=== PATIENT | female | born 1995 | race Caucasian/White ===

== ENCOUNTER 2021-05-24 09:40 | Emergency (ER) | payer OTHER, SELFPAY ==
[2021-05-24 09:50] VITALS: BP 108/80; PULSE 72; RESP 18; TEMP 36.6; O2SAT 99; BMI 25.4
--- NOTE | 2021-05-24 10:11 | ED_ITS ---
HPI - General Adult General Chief complaint: General Medical Stated complaint: ? preg abd pain Time Seen by Provider: 05/24/21 10:03 Source: patient Mode of arrival: ambulatory History of Present Illness HPI narrative: 25-year-old female presenting to the ED complaining of lower abdominal cramping with 4 negative and 4 positive test at home. Reports nausea and vomiting last week, resolved at present. Denies vaginal bleeding, vaginal discharge, fever/chills, dysuria/hematuria, flank pain Onset (ago): day(s) Related Data Allergies Allergy/AdvReac Type Severity Reaction Status Date / Time No Known Allergies Allergy Verified 05/24/21 09:54 Review of Systems Review of Systems: Constitutional: No Fever, No Chills, No Fatigue, No Malaise ENT/Mouth: No Hearing loss, No Ear Pain, No Nasal Congestion, No sore throat, No Swallowing Difficulty Eyes: No Eye Pain, No Swelling, No Redness Cardiovascular: No Chest Pain, No SOB, No Dyspnea on Exertion, No Orthopnea, No Edema, No Palpitations Respiratory: No Cough, No Dyspnea Gastrointestinal: + Nausea (resolved) + Vomiting (resolved), No Diarrhea, No Constipation, + Abdominal pain Genitourinary: No irregular bleeding, No Dysuria, No Urinary Frequency, No Hematuria,No Flank Pain, No Urinary Flow Changes, No Hesitancy Musculoskeletal: No joint pain, No Myalgias, No Joint Swelling Skin: No Skin Lesions, No rash Neuro: No Weakness, No Numbness, No Paresthesias, No Loss of Consciousness, No Dizziness, No Headache Yes all other systems are reviewed and are negative [facility] Past Medical History Attestation statement: The following information was validated with the patient. Medical History (Updated 05/24/21 @ 11:18 by MAG Feldman) No known health problems Social History Social History Advance Directives: No Advance Directives Information Provided: No Patient : No Physical Exam Vital Signs: Vital Signs: Last Vital Signs Temp 98.1 F 05/24/21 10:40 Pulse 67 05/24/21 10:40 Resp 14 05/24/21 10:40 BP 105/70 05/24/21 10:40 Pulse Ox 98 05/24/21 10:40 Body Mass Index 25.4 Const: General: cooperative, healthy appearing and no acute distress Orientation/consciousness: patient oriented x3 Limitations: no limitations HENMT: Head: Yes normal to inspection Ears: hearing grossly normal bilaterally General nose exam: Normal external nose present Face and sinus: Yes normal facial exam Eyes: General: appearance normal, both eyes and all related structures EOM: EOMs intact bilaterally Neck: Neck: Yes normal visual inspection and Yes no meningeal signs Resp: Effort & Inspection: normal respiratory effort and no respiratory distress Auscultation: clear to auscultation bilaterally Cardio: Rate: regular rate Heart sounds: S1 normal heart sound present and S2 normal heart sound present GI: Inspection: Yes normal to inspection Palpation (GI): Soft to palpation, nontender, no guarding and not rigid : General: Yes no CVA tenderness Back/Spine/Pelvis: Back: no CVA tenderness Skin: Rashes: no rashes Wounds: no wounds Neuro: General: patient oriented x3 and no meningeal signs Gait exam (Neuro): Normal gait present Extrem: General: Yes normal to inspection Course Course Course Narrative: -1115--no leukocytosis. H&H at patient's baseline. Labs otherwise unremarkable. UA negative. negative Medical Decision Making [facility] Narrative Medical decision making narrative: 25-year-old female presenting to the ED complaining of lower abdominal cramping with 4 negative and 4 positive test at home. Exam vital signs stable, NAD/nontoxic, abdomen soft/nontender, no CVAT. Rule out vs ectopic vs UTI vs ovarian cyst Plan: Labs, UA, , +/-pelvic ultrasound Lab Data Result diagrams: 05/24/21 10:38 05/24/21 10:38 Labs: Lab Results 05/24/21 05/24/21 05/24/21 Range/Units 10:38 10:38 10:38 WBC 6.9 (4.8-10.8) X10*3/uL RBC 4.17 L (4.20-5.50) X10*6/uL Hgb 11.2 L (12.0-16.0) g/dl Hct 34.3 L (37.0-47.0) % MCV 82.3 (80.0-98.0) fL MCH 26.9 L (27.0-33.0) pg MCHC 32.7 (31.0-35.0) g/dl RDW 12.6 (11.0-16.0) % Plt Count 245 (160-400) X10*3/uL MPV 9.5 (9.4-12.3) fL Immature Gran % (Auto) 0.1 (0.0-0.4) % Neut % (Auto) 55.1 (45-73) % Lymph % (Auto) 36.2 (20-40) % [place] % (Auto) 6.6 (2-11) % Eos % (Auto) 1.7 (0-4) % Baso % (Auto) 0.3 (0-2) % Lymph # (Auto) 2.5 (1.2-4.9) X10*3/uL [place] # (Auto) 0.5 (0.1-1.2) X10*3/uL Eos # (Auto) 0.1 (0.0-0.4) X10*3/uL Baso # (Auto) 0.0 (0.0-0.2) X10*3/uL Abs Immat Gran (auto) 0.01 (0.00-0.03) X10*3/uL Absolute Neuts (auto) 3.8 (2.0-8.3) x10*3/uL Absolute Nucleated RBC 0.000 (0.0-0.012) X10*3/uL Nucleated RBC % (auto) 0.0 (0.0-0.2) /100WBC Sodium 139 (135-145) mmol/L Potassium 4.2 (3.3-5.1) mmol/L Chloride 106 (96-108) mmol/L Carbon Dioxide 29 (22-29) mmol/L Anion Gap 8 L (12-20) BUN 13 (9-16) mg/dL Creatinine 0.78 (0.5-1.4) mg/dL Estim Creat Clear Calc 108.7 Estimated GFR > 60 Random Glucose 95 (60-115) mg/dL Calcium 9.4 (8.4-10.2) mg/dL Magnesium 1.9 (1.6-2.6) mg/dL Total Bilirubin 0.4 (0.0-1.0) mg/dL Direct Bilirubin 0.2 (0.0-0.5) mg/dL AST 20 (5-31) U/L ALT 16 (0-31) U/L Alkaline Phosphatase 86 (39-117) U/L Total Protein 7.3 (6.5-8.0) g/dL Albumin 4.4 (3.5-5.0) g/dL Lipase 17 (8-78) U/L Beta HCG, Quant < 2 mIU/mL Urine Color Urine Appearance Urine pH (5.0-8.0) Ur Specific [place] (1.005-1.025) Urine Protein (NEG-TRACE) MG/DL Urine Glucose (UA) (NEG) MG/DL Urine Ketones (NEG) MG/DL Urine Blood (NEG) Urine Nitrite (NEG) Ur Leukocyte Esterase (NEG) Urine RBC (0) /HPF Urine WBC (0-4) /HPF Ur Squamous Epith Cells /LPF Urine Bacteria /LPF Urine Test NEGATIVE (NEGATIVE) 05/24/21 Range/Units 10:38 WBC (4.8-10.8) X10*3/uL RBC (4.20-5.50) X10*6/uL Hgb (12.0-16.0) g/dl Hct (37.0-47.0) % MCV (80.0-98.0) fL MCH (27.0-33.0) pg MCHC (31.0-35.0) g/dl RDW (11.0-16.0) % Plt Count (160-400) X10*3/uL MPV (9.4-12.3) fL Immature Gran % (Auto) (0.0-0.4) % Neut % (Auto) (45-73) % Lymph % (Auto) (20-40) % [place] % (Auto) (2-11) % Eos % (Auto) (0-4) % Baso % (Auto) (0-2) % Lymph # (Auto) (1.2-4.9) X10*3/uL [place] # (Auto) (0.1-1.2) X10*3/uL Eos # (Auto) (0.0-0.4) X10*3/uL Baso # (Auto) (0.0-0.2) X10*3/uL Abs Immat Gran (auto) (0.00-0.03) X10*3/uL Absolute Neuts (auto) (2.0-8.3) x10*3/uL Absolute Nucleated RBC (0.0-0.012) X10*3/uL Nucleated RBC % (auto) (0.0-0.2) /100WBC Sodium (135-145) mmol/L Potassium (3.3-5.1) mmol/L Chloride (96-108) mmol/L Carbon Dioxide (22-29) mmol/L Anion Gap (12-20) BUN (9-16) mg/dL Creatinine (0.5-1.4) mg/dL Estim Creat Clear Calc Estimated GFR Random Glucose (60-115) mg/dL Calcium (8.4-10.2) mg/dL Magnesium (1.6-2.6) mg/dL Total Bilirubin (0.0-1.0) mg/dL Direct Bilirubin (0.0-0.5) mg/dL AST (5-31) U/L ALT (0-31) U/L Alkaline Phosphatase (39-117) U/L Total Protein (6.5-8.0) g/dL Albumin (3.5-5.0) g/dL Lipase (8-78) U/L Beta HCG, Quant mIU/mL Urine Color YELLOW Urine Appearance CLEAR Urine pH 6.5 (5.0-8.0) Ur Specific [place] 1.025 (1.005-1.025) Urine Protein NEG (NEG-TRACE) MG/DL Urine Glucose (UA) NEG (NEG) MG/DL Urine Ketones NEG (NEG) MG/DL Urine Blood NEG (NEG) Urine Nitrite NEG (NEG) Ur Leukocyte Esterase NEG (NEG) Urine RBC 0 (0) /HPF Urine WBC 0-2 (0-4) /HPF Ur Squamous Epith Cells 2+ /LPF Urine Bacteria NONE /LPF Urine Test (NEGATIVE) Discharge Plan Discharge Clinical Impression: Lower abdominal pain Patient Disposition: Home, Self-Care Instructions: Abdominal Pain (ED) Additional Instructions: Your blood work is unremarkable, your urine and blood work levels were negative Your urine was not infected Please follow-up with her doctor Please stay hydrated at home If her symptoms persist or worsen, your unable to eat or drink, unbearable pain, developed fever please return to the ED Referrals: Physician,None [Primary Care Provider] - 2 days
[2021-05-24 10:40] VITALS: BP 105/70; PULSE 67; RESP 14; TEMP 36.7; O2SAT 98
[2021-05-24 10:45] LABS: MANUAL DIFF FLAG NO
[2021-05-24 10:46] LABS: Appearance Urine CLEAR; Basophils Percent Auto 0.3 % (0-2); Color Urine YELLOW; Eosinophils Absolute Auto 0.1 X10*3/uL (0.0-0.4); Eosinophils Percent Auto 1.7 % (0-4); Glucose Urine UA NEG (NEG); Hematocrit 34.3 % (37.0-47.0); Hemoglobin 11.2 g/dl (12.0-16.0); Imm Gran Abs Auto 0.01 X10*3/uL (0.00-0.03); Imm Gran Pct Auto 0.1 % (0.0-0.4); Leukocyte Esterase Urine NEG (NEG); Lymphocytes Absolute Auto 2.5 X10*3/uL (1.2-4.9); Lymphocytes Percent Auto 36.2 % (20-40); Mean Corpuscular HGB Conc 32.7 g/dl (31.0-35.0); Mean Corpuscular Hemoglobin 26.9 pg (27.0-33.0); Mean Corpuscular Volume 82.3 fL (80.0-98.0); Mean Platelet Volume 9.5 fL (9.4-12.3); Monocytes Absolute Auto 0.5 X10*3/uL (0.1-1.2); Monocytes Percent Auto 6.6 % (2-11); Neutrophils Absolute Auto 3.8 x10*3/uL (2.0-8.3); Neutrophils Percent Auto 55.1 % (45-73); Nitrite Urine NEG (NEG); PH 6.5 (5.0-8.0); Platelet Count 245 X10*3/uL (160-400); Red Blood Count 4.17 X10*6/uL (4.20-5.50); Red Cell Distribution Width 12.6 % (11.0-16.0); Specific Gravity - Urine 1.025 (1.005-1.025); Urine Blood NEG (NEG); Urine Ketones NEG (NEG); Urine Protein NEG (NEG-TRACE); White Blood Count 6.9 X10*3/uL (4.8-10.8)
[2021-05-24 10:48] LABS: UPreg QC Valid YES; Urine Pregnancy NEGATIVE (NEGATIVE)
[2021-05-24 11:06] LABS: Alanine Aminotransferase 16 U/L (0-31); Albumin Level 4.4 g/dL (3.5-5.0); Alkaline Phosphatase 86 U/L (39-117); Anion Gap 8 (12-20); Aspartate Amino Transferase 20 U/L (5-31); Bilirubin Direct 0.2 mg/dL (0.0-0.5); Bilirubin Total 0.4 mg/dL (0.0-1.0); Blood Urea Nitrogen 13 mg/dL (9-16); Calcium 9.4 mg/dL (8.4-10.2); Carbon Dioxide 29 mmol/L (22-29); Chloride 106 mmol/L (96-108); Creatinine Clr Calc Pharmacy 108.7; Estimated Glomerular Filt Rate > 60; Glucose Random 95 mg/dL (60-115); Lipase 17 U/L (8-78); Magnesium 1.9 mg/dL (1.6-2.6); Potassium 4.2 mmol/L (3.3-5.1); Sodium 139 mmol/L (135-145); Total Protein 7.3 g/dL (6.5-8.0)
[2021-05-24 11:07] LABS: RBC Urine 0 /HPF (0); Squamous Epithelial Cell Urine 2+ /LPF; WBC Urine 0-2 /HPF (0-4)
[2021-05-24 11:09] LABS: HCG Quantitative < 2 mIU/mL
== END 2021-05-24 11:23 | disposition home or self-care (01) ==
PROVIDERS: Physician Assistant; Emergency Provider Emergency Medicine
DX: R10.30 Lower abdominal pain, unspecified (principal); R11.2 Nausea with vomiting, unspecified
CPT/HCPCS: 36415; 80048; 80076; 81001; 81025; 83690; 83735; 84702; 85025; 99283

== ENCOUNTER 2021-07-21 17:57 | Emergency (ER) | payer OTHER, SELFPAY ==
--- NOTE | ~2021-07-21 | US_ITS ---
EXAMINATION: US OBSTETRICAL ULTRASOUND CLINICAL INFORMATION: Vaginal bleeding. HCG today 2617 corresponding to 4-5 weeks COMPARISON: None. LMP: 06/11/2021. Gestational age by maternal dates is 5 weeks and 6 days. Estimated date of delivery by maternal dates is 03/18/2022. TECHNIQUE: Routine transabdominal and transvaginal imaging of pelvis is performed. FINDINGS: There is a single intrauterine gestational sac with yolk sac visualized. pole is not visualized. The gestational sac measurements to 5 weeks and 2 days. There is a tiny hypoechoic area adjacent to gestational sac measuring 0.7 x 0.3 x 0.4 cm suggestive of subchorionic bleed. HR: Not visualized MATERNAL ADNEXA: The right maternal ovary measures 2.9 x 2.0 x 2.1 cm. There is a corpus luteal cyst measuring 1.5 x 1.0 x 1.2 cm. The left maternal ovary measures 3.1 x 1.8 x 1.8 cm. There is a small amount of fluid in the cul-de-sac. US/US OB pelvic and transvaginal IMPRESSION: 1. Single intrauterine gestation and yolk sac with no pole seen. Based on gestational sac measurements of 5 weeks and 2 days visualization of pole is likely too early. Recommend follow-up ultrasound in 2-3 weeks. 2Corpus luteal cyst right ovary. 3.Small subchorionic bleed.
[2021-07-21 19:07] VITALS: BP 154/70; PULSE 74; RESP 18; TEMP 37.2; O2SAT 100; BMI 27.4
[2021-07-21 21:33] LABS: MANUAL DIFF FLAG NO
[2021-07-21 21:35] LABS: Basophils Percent Auto 0.3 % (0-2); Eosinophils Absolute Auto 0.1 X10*3/uL (0.0-0.4); Eosinophils Percent Auto 0.6 % (0-4); Hematocrit 39.6 % (37.0-47.0); Hemoglobin 12.8 g/dl (12.0-16.0); Imm Gran Abs Auto 0.02 X10*3/uL (0.00-0.03); Imm Gran Pct Auto 0.2 % (0.0-0.4); Lymphocytes Absolute Auto 2.7 X10*3/uL (1.2-4.9); Lymphocytes Percent Auto 27.3 % (20-40); Mean Corpuscular HGB Conc 32.3 g/dl (31.0-35.0); Mean Corpuscular Hemoglobin 26.6 pg (27.0-33.0); Mean Corpuscular Volume 82.2 fL (80.0-98.0); Mean Platelet Volume 9.5 fL (9.4-12.3); Monocytes Absolute Auto 0.4 X10*3/uL (0.1-1.2); Monocytes Percent Auto 4.4 % (2-11); Neutrophils Absolute Auto 6.6 x10*3/uL (2.0-8.3); Neutrophils Percent Auto 67.2 % (45-73); Platelet Count 306 X10*3/uL (160-400); Red Blood Count 4.82 X10*6/uL (4.20-5.50); Red Cell Distribution Width 12.7 % (11.0-16.0); White Blood Count 9.8 X10*3/uL (4.8-10.8)
[2021-07-21 22:02] LABS: Alanine Aminotransferase 61 U/L (0-31); Albumin Level 4.9 g/dL (3.5-5.0); Alkaline Phosphatase 103 U/L (39-117); Anion Gap 15 (12-20); Aspartate Amino Transferase 32 U/L (5-31); Bilirubin Total 0.4 mg/dL (0.0-1.0); Blood Urea Nitrogen 10 mg/dL (9-16); Calcium 10.2 mg/dL (8.4-10.2); Carbon Dioxide 25 mmol/L (22-29); Chloride 103 mmol/L (96-108); Creatinine Clr Calc Pharmacy 114.5; Estimated Glomerular Filt Rate > 60; Glucose Random 93 mg/dL (60-115); Potassium 3.8 mmol/L (3.3-5.1); Sodium 139 mmol/L (135-145); Total Protein 8.7 g/dL (6.5-8.0)
[2021-07-22 05:57] LABS: Appearance Urine CLOUDY; Color Urine DK YELLOW; Glucose Urine UA NEG (NEG); Leukocyte Esterase Urine 1+ (NEG); Nitrite Urine NEG (NEG); Specific Gravity - Urine >= 1.030 (1.005-1.025); UACC Culture Trigger YES; Urine Blood 3+ (NEG); Urine Ketones NEG (NEG); Urine Protein TRACE MG/DL (NEG-TRACE)
[2021-07-22 06:00] LABS: UPreg QC Valid YES; Urine Pregnancy POSITIVE (NEGATIVE)
[2021-07-22 06:09] LABS: Bacteria Urine 1+ /LPF; Mucus Urine 1+ /LPF; RBC Urine 50-75 /HPF (0); Squamous Epithelial Cell Urine 1+ /LPF
[2021-07-22 06:51] LABS: HCG Quantitative 2617 mIU/mL
--- NOTE | 2021-07-22 07:51 | ED_ITS ---
HPI - Female Genitourinary General Chief complaint: Urogenital-Female Stated complaint: 5 wks preg/Vaginal bleeding Time Seen by Provider: 07/21/21 23:38 Source: patient Mode of arrival: ambulatory Limitations: no limitations History of Present Illness HPI Narrative: 5 weeks based off LMP - at this time c/o bleeding since intercourse yesterday some cramping no tohter issues noted MD elicited complaint: vaginal bleeding Onset (ago): day(s) (1) Location of symptoms: suprapubic Severity: mild Female Urogenital Radiation: Non-Radiating Quality of pain: cramping and dull Consistency: intermittent Vaginal bleeding: scant Exacerbating factors: none Relieving factors: none Associated symptoms: abdominal pain Treatment prior to arrival: none Sexual activity: Yes Patient : Yes Related Data Allergies Allergy/AdvReac Type Severity Reaction Status Date / Time No Known Allergies Allergy Verified 07/21/21 19:07 Review of Systems Review of Systems: Constitutional : No Fever, No Chills ENT/Mouth : No sore throat, No Rhinorrhea Eyes: No Eye Pain, No Redness Cardiovascular : No Chest Pain, No SOB Respiratory : No Cough, No Sputum, No Wheezing Gastrointestinal : no Nausea, No Vomiting, No Diarrhea, positive abdominal pain, Genitourinary : positive irregular bleeding, No Dysuria, No Urinary Frequency, positive pelvic pain Musculoskeletal : No Myalgias Skin : No rash Neuro : No Weakness, No Headache Psych : No Anxiety/Panic, No Depression Heme/Lymph: No bruising, No Lymphadenopathy Endocrine : No Polyuria, No Polydipsia All other systems reviewed and are negative [facility] Past Medical History Medical History No known health problems Social History Social History (Updated 07/22/21 @ 08:16 by Karon Kyle DO) Patient Tobacco Use Status: Never used Tobacco Advance Directives: No Advance Directives Information Provided: Yes Patient : Yes Physical Exam Vital Signs: Vital Signs: Last Vital Signs Temp 99 F 07/21/21 19:07 Pulse 74 07/21/21 19:07 Resp 18 07/21/21 19:07 BP 154/70 H 07/21/21 19:07 Pulse Ox 100 07/21/21 19:07 BMI result Body Mass Index 27.4 Appearance: Alert. Oriented X3. No acute distress. Eyes: Pupils equal, round and reactive to light. ENT: Pharynx normal. Neck: Normal inspection. Neck supple. CVS: Normal heart rate and rhythm. Pulses normal. Respiratory: No respiratory distress. Breath sounds normal. Abdomen: Soft and nontender. : scant blood on fingertip noted, os closed Skin: Skin warm and dry. Normal skin color. Normal skin turgor. Extremities: No lower extremity edema. No calf ttp Neuro: Oriented X 3. No motor deficit. No sensory deficit. Course Course Course Narrative: WBCs in UA likely contaminated from blood O POS - does not need rhogam MDM - Female Genitourinary MDM Narrative Medical decision making narrative: 26 yo female here with vaginal bleeding after intercourse 5 weeks - os closed on exam at this time will need quant, UA, Rh status - US to evaluate dispo per results and findings Lab Data Result diagrams: 07/21/21 21:30 07/21/21 21:30 Labs: Lab Results 07/21/21 07/21/21 07/22/21 Range/Units 21:30 21:30 05:44 WBC 9.8 (4.8-10.8) X10*3/uL RBC 4.82 (4.20-5.50) X10*6/uL Hgb 12.8 (12.0-16.0) g/dl Hct 39.6 (37.0-47.0) % MCV 82.2 (80.0-98.0) fL MCH 26.6 L (27.0-33.0) pg MCHC 32.3 (31.0-35.0) g/dl RDW 12.7 (11.0-16.0) % Plt Count 306 (160-400) X10*3/uL MPV 9.5 (9.4-12.3) fL Immature Gran % (Auto) 0.2 (0.0-0.4) % Neut % (Auto) 67.2 (45-73) % Lymph % (Auto) 27.3 (20-40) % [place] % (Auto) 4.4 (2-11) % Eos % (Auto) 0.6 (0-4) % Baso % (Auto) 0.3 (0-2) % Lymph # (Auto) 2.7 (1.2-4.9) X10*3/uL [place] # (Auto) 0.4 (0.1-1.2) X10*3/uL Eos # (Auto) 0.1 (0.0-0.4) X10*3/uL Baso # (Auto) 0.0 (0.0-0.2) X10*3/uL Abs Immat Gran (auto) 0.02 (0.00-0.03) X10*3/uL Absolute Neuts (auto) 6.6 (2.0-8.3) x10*3/uL Absolute Nucleated RBC 0.000 (0.0-0.012) X10*3/uL Nucleated RBC % (auto) 0.0 (0.0-0.2) /100WBC Sodium 139 (135-145) mmol/L Potassium 3.8 (3.3-5.1) mmol/L Chloride 103 (96-108) mmol/L Carbon Dioxide 25 (22-29) mmol/L Anion Gap 15 (12-20) BUN 10 (9-16) mg/dL Creatinine 0.76 (0.5-1.4) mg/dL Estim Creat Clear Calc 114.5 Estimated GFR > 60 Random Glucose 93 (60-115) mg/dL Calcium 10.2 D (8.4-10.2) mg/dL Total Bilirubin 0.4 (0.0-1.0) mg/dL AST 32 H D (5-31) U/L ALT 61 H (0-31) U/L Alkaline Phosphatase 103 (39-117) U/L Total Protein 8.7 H (6.5-8.0) g/dL Albumin 4.9 (3.5-5.0) g/dL Beta HCG, Quant 2617 mIU/mL Urine Color DK YELLOW Urine Appearance CLOUDY Urine pH 6.0 (5.0-8.0) Ur Specific [place] >= 1.030 H (1.005-1.025) Urine Protein TRACE (NEG-TRACE) MG/DL Urine Glucose (UA) NEG (NEG) MG/DL Urine Ketones NEG (NEG) MG/DL Urine Blood 3+ H (NEG) Urine Nitrite NEG (NEG) Ur Leukocyte Esterase 1+ H (NEG) Urine RBC 50-75 H (0) /HPF Urine WBC 5-9 H (0-4) /HPF Ur Squamous Epith Cells 1+ /LPF Urine Bacteria 1+ /LPF Urine Mucus 1+ /LPF Urine Test (NEGATIVE) Blood Type 07/22/21 07/22/21 Range/Units 05:44 08:41 WBC (4.8-10.8) X10*3/uL RBC (4.20-5.50) X10*6/uL Hgb (12.0-16.0) g/dl Hct (37.0-47.0) % MCV (80.0-98.0) fL MCH (27.0-33.0) pg MCHC (31.0-35.0) g/dl RDW (11.0-16.0) % Plt Count (160-400) X10*3/uL MPV (9.4-12.3) fL Immature Gran % (Auto) (0.0-0.4) % Neut % (Auto) (45-73) % Lymph % (Auto) (20-40) % [place] % (Auto) (2-11) % Eos % (Auto) (0-4) % Baso % (Auto) (0-2) % Lymph # (Auto) (1.2-4.9) X10*3/uL [place] # (Auto) (0.1-1.2) X10*3/uL Eos # (Auto) (0.0-0.4) X10*3/uL Baso # (Auto) (0.0-0.2) X10*3/uL Abs Immat Gran (auto) (0.00-0.03) X10*3/uL Absolute Neuts (auto) (2.0-8.3) x10*3/uL Absolute Nucleated RBC (0.0-0.012) X10*3/uL Nucleated RBC % (auto) (0.0-0.2) /100WBC Sodium (135-145) mmol/L Potassium (3.3-5.1) mmol/L Chloride (96-108) mmol/L Carbon Dioxide (22-29) mmol/L Anion Gap (12-20) BUN (9-16) mg/dL Creatinine (0.5-1.4) mg/dL Estim Creat Clear Calc Estimated GFR Random Glucose (60-115) mg/dL Calcium (8.4-10.2) mg/dL Total Bilirubin (0.0-1.0) mg/dL AST (5-31) U/L ALT (0-31) U/L Alkaline Phosphatase (39-117) U/L Total Protein (6.5-8.0) g/dL Albumin (3.5-5.0) g/dL Beta HCG, Quant mIU/mL Urine Color Urine Appearance Urine pH (5.0-8.0) Ur Specific [place] (1.005-1.025) Urine Protein (NEG-TRACE) MG/DL Urine Glucose (UA) (NEG) MG/DL Urine Ketones (NEG) MG/DL Urine Blood (NEG) Urine Nitrite (NEG) Ur Leukocyte Esterase (NEG) Urine RBC (0) /HPF Urine WBC (0-4) /HPF Ur Squamous Epith Cells /LPF Urine Bacteria /LPF Urine Mucus /LPF Urine Test POSITIVE H (NEGATIVE) Blood Type O Positive Discharge Plan Discharge Clinical Impression: , threatened Subchorionic bleed Qualifiers: Fetus number: single or unspecified fetus Trimester: first trimester Qualified Code(s): O41.8X10 - Other specified disorders of amniotic fluid and membranes, first trimester, not applicable or unspecified Patient Disposition: Home, Self-Care Instructions: Threatened Miscarriage (ED), Subchorionic Hemorrhage (ED) Additional Instructions: return to ED for any worsening symptoms or concerns US FINDINGS 1. Single intrauterine gestation and yolk sac with no pole seen. Based on gestational sac measurements of 5 weeks and 2 days visualization of pole is likely too early. Recommend follow-up ultrasound in 2-3 weeks. ? 2Corpus luteal cyst right ovary. ? 3.Small subchorionic bleed. HCG 2617 BLOOD TYPE O POS YOUR URINE IS NOT INFECTED AT THIS TIME IF THE CULTURE GROWS ANYTHING WE WILL CALL YOU NO SEX FOR 2 WEEKS CALL YOUR OB AND HAVE A REPEAT BLOOD TEST FOR HORMONES IN 2 DAYS REPEAT ULTRASOUND IN 2 WEEKS RETURN FOR WORSENING BLEEDING OR LARGE CLOTS Stand Alone Forms: Work/School Release
[2021-07-22 10:15] VITALS: BP 117/75; PULSE 72; RESP 14; TEMP 36.4; O2SAT 97
== END 2021-07-22 10:28 | disposition home or self-care (01) ==
PROVIDERS: Student in an Organized Health Care Education/Training Program; Emergency Provider Emergency Medicine; PCP Internal Medicine
DX: O20.0 Threatened abortion (principal); O41.8X10 Other specified disorders of amniotic fluid and membranes, first trimester, not applicable or unspecified; Z3A.01 Less than 8 weeks gestation of pregnancy
CPT/HCPCS: 36415; 76801; 76817; 80053; 81001; 81003; 81025; 84702; 85025; 86900; 86901; 87086; 87147; 99284

== ENCOUNTER 2021-07-24 15:22 | Emergency (ER) | payer OTHER, SELFPAY ==
--- NOTE | ~2021-07-24 | US_ITS ---
EXAMINATION: US OBSTETRICAL ULTRASOUND CLINICAL INFORMATION: Vaginal bleeding COMPARISON: OB ultrasound 07/22/2021. LMP: 06/11/2021. Gestational age by maternal dates is 6 weeks and 1 day. Estimated date of delivery by maternal dates is 03/18/2022. TECHNIQUE: Obstetrical ultrasound was obtained using transabdominal and endovaginal imaging. FINDINGS: Uterus is retroverted in position. The endometrium measures 1 cm in thickness with no significant internal vascularity. The previously seen gestational sac is no longer identified. MATERNAL ADNEXA: The right maternal ovary measures 3.0 x 2.0 x 2.0 cm. Ovary is unremarkable in appearance. No adnexal mass. The left maternal ovary measures 3.0 x 2.0 x 2.5 cm. Ovary is unremarkable in appearance. No adnexal mass. No maternal pelvic ascites. US/US OB pelvic and transvaginal IMPRESSION: The previously seen intrauterine gestational sac is no longer identified suggestive of interval miscarriage. Endometrium is borderline thickening measuring 1 cm, for which retained products of conception cannot be excluded. No free fluid or adnexal mass.
[2021-07-24 16:00] VITALS: BP 105/62; RESP 16; TEMP 36.2; O2SAT 98; BMI 27.4
--- NOTE | 2021-07-24 21:59 | ED.PREGNANCY ---
HPI - General Chief complaint: Vaginal Bleeding Stated complaint: vag bleeding - 6wks preg Time Seen by Provider: 07/24/21 21:14 Source: patient Mode of arrival: ambulatory Limitations: no limitations History of Present Illness HPI Narrative: 26 yold female presents to the ED vaginal bleeding. Patient is and was seen here 2 days ago for heavy vaginal bleeding clots and had US which showed gesational sac with yolk sacem but no pole. Patient states no longer has bleeding clots and denies any abdominal pain. patient came back to the ED for continous vaginal bleeding. and mild fatigue. Complaint: vaginal bleeding Related Data Allergies Allergy/AdvReac Type Severity Reaction Status Date / Time No Known Allergies Allergy Verified 07/21/21 19:07 Review of Systems Review of Systems: vaginal lbeeding. Yes all other systems are reviewed and are negative FOR[facility]LY [facility] Past Medical History Medical History No known health problems Social History Social History (Updated 07/22/21 @ 08:16 by Karon Kyle DO) Patient Tobacco Use Status: Never used Tobacco Physical Exam Vital Signs: Vital Signs: Last Vital Signs Temp 97.1 F 07/24/21 16:00 Pulse 78 07/24/21 22:03 Resp 18 07/24/21 22:03 BP 115/79 07/24/21 22:03 Pulse Ox 95 07/24/21 22:03 BMI result Body Mass Index 27.4 Const: General: cooperative, healthy appearing, comfortable, no acute distress, well developed, alert, awake and Physically active Orientation/consciousness: patient oriented x3 HENMT: Head: Yes normal to inspection, Yes No palpable skull fracture present, Yes normocephalic, Yes atraumatic and No abrasion Eyes: General: appearance normal, both eyes and all related structures Neck: Neck: Yes normal visual inspection, Yes full ROM, Yes no lymphadenopathy, Yes no meningeal signs, Yes trachea midline, Yes supple, No anterior neck swelling and No tender Chest: Chest palpation & inspection: normal inspection of the chest and normal palpation of entire chest wall Resp: Effort & Inspection: normal respiratory effort and able to speak in complete sentences Cardio: Jugular venous distension: no JVD Heart sounds: S1 normal heart sound present and S2 normal heart sound present GI: Inspection: Yes normal to inspection and No abdominal wall ecchymosis Palpation (GI): Soft to palpation, not firm, nontender, no guarding and not rigid : General: No CVA tenderness and Yes no CVA tenderness Speculum Exam - Vagina: vaginal bleeding (Negative for hemorrhaging.) and No tissue present in vagina Speculum Exam - Cervix: normal appearance of the cervix and Cervical os closed (Negative for tissue.) OB/external & speculum: vaginal bleeding (Negative for hemorrhaging.); No no tissue noted in vagina Back/Spine/Pelvis: Back: no CVA tenderness, No CVA tenderness and No back tenderness Skin: General skin exam: no rashes or lesions noted, elasticity normal and turgor normal Neuro: General: patient oriented x3, gait normal, no meningeal signs and CN's II-XI intact bilaterally Cranial nerves: Yes CN's II-XII intact bilaterally Extrem: General: Yes normal to inspection and Yes full ROM Psych: Appearance: grossly normal, well kempt and not disheveled Course Course Course Narrative: Patient will have repeat labs and US. Vital signs stable Reevaluation(s) Reevaluation #1: Labs shows decrease in AcG with ultrasound showing some reading of complete with possible retained products. Patient is hemodynamically stable. Waiting to hear from Dr. Alvarado Curtis Time: 00:05 Reevaluation #2: Case was discussed with Dr. Childers. History, physical exam, and diagnostics [facility] And he states patient most likely had complete and could be follow-up as outpatient at OBGYN clinic. Recommends education spontaneous and for patient to return to the ED immediately if she has worsening bleeding. Patient informed if bleeding worsen to return to the ED immediately. He recommends education and discharged as incomplete . Time: 00:16 MDM - OB/Uterine Contractions MDM Narrative Medical decision making narrative: Complete Lab Data Result diagrams: 07/24/21 22:11 07/24/21 22:11 Labs: Lab Results 07/24/21 07/24/21 07/24/21 Range/Units 22:11 22:11 22:11 WBC 5.2 (4.8-10.8) X10*3/uL RBC 4.41 (4.20-5.50) X10*6/uL Hgb 11.6 L 11.7 L (12.0-16.0) g/dl Hct 35.7 L 36.5 L (37.0-47.0) % MCV 82.8 (80.0-98.0) fL MCH 26.5 L (27.0-33.0) pg MCHC 32.1 (31.0-35.0) g/dl RDW 12.8 (11.0-16.0) % Plt Count 270 (160-400) X10*3/uL MPV 9.6 (9.4-12.3) fL Immature Gran % (Auto) 0.2 (0.0-0.4) % Neut % (Auto) 48.9 (45-73) % Lymph % (Auto) 39.8 (20-40) % Mower % (Auto) 9.3 (2-11) % Eos % (Auto) 1.6 (0-4) % Baso % (Auto) 0.2 (0-2) % Lymph # (Auto) 2.1 (1.2-4.9) X10*3/uL Mower # (Auto) 0.5 (0.1-1.2) X10*3/uL Eos # (Auto) 0.1 (0.0-0.4) X10*3/uL Baso # (Auto) 0.0 (0.0-0.2) X10*3/uL Abs Immat Gran (auto) 0.01 (0.00-0.03) X10*3/uL Absolute Neuts (auto) 2.5 (2.0-8.3) x10*3/uL Absolute Nucleated RBC 0.000 (0.0-0.012) X10*3/uL Nucleated RBC % (auto) 0.0 (0.0-0.2) /100WBC PT 12.7 (9.9-13.0) SEC INR 1.1 (0.9-1.1) APTT 37.7 (24.1-38.0) SEC Sodium (135-145) mmol/L Potassium (3.3-5.1) mmol/L Chloride (96-108) mmol/L Carbon Dioxide (22-29) mmol/L Anion Gap (12-20) BUN (9-16) mg/dL Creatinine (0.5-1.4) mg/dL Estim Creat Clear Calc Estimated GFR Random Glucose (60-115) mg/dL Calcium (8.4-10.2) mg/dL Total Bilirubin (0.0-1.0) mg/dL Direct Bilirubin (0.0-0.5) mg/dL AST (5-31) U/L ALT (0-31) U/L Alkaline Phosphatase (39-117) U/L Total Protein (6.5-8.0) g/dL Albumin (3.5-5.0) g/dL Beta HCG, Quant mIU/mL Urine Color Urine Appearance Urine pH (5.0-8.0) Ur Specific [place] (1.005-1.025) Urine Protein (NEG-TRACE) MG/DL Urine Glucose (UA) (NEG) MG/DL Urine Ketones (NEG) MG/DL Urine Blood (NEG) Urine Nitrite (NEG) Ur Leukocyte Esterase (NEG) Urine RBC (0) /HPF Urine WBC (0-4) /HPF Ur Squamous Epith Cells /LPF Urine Bacteria /LPF Urine Mucus /LPF Urine Test (NEGATIVE) 07/24/21 07/24/21 07/24/21 Range/Units 22:11 23:05 23:05 WBC (4.8-10.8) X10*3/uL RBC (4.20-5.50) X10*6/uL Hgb (12.0-16.0) g/dl Hct (37.0-47.0) % MCV (80.0-98.0) fL MCH (27.0-33.0) pg MCHC (31.0-35.0) g/dl RDW (11.0-16.0) % Plt Count (160-400) X10*3/uL MPV (9.4-12.3) fL Immature Gran % (Auto) (0.0-0.4) % Neut % (Auto) (45-73) % Lymph % (Auto) (20-40) % Mower % (Auto) (2-11) % Eos % (Auto) (0-4) % Baso % (Auto) (0-2) % Lymph # (Auto) (1.2-4.9) X10*3/uL Mower # (Auto) (0.1-1.2) X10*3/uL Eos # (Auto) (0.0-0.4) X10*3/uL Baso # (Auto) (0.0-0.2) X10*3/uL Abs Immat Gran (auto) (0.00-0.03) X10*3/uL Absolute Neuts (auto) (2.0-8.3) x10*3/uL Absolute Nucleated RBC (0.0-0.012) X10*3/uL Nucleated RBC % (auto) (0.0-0.2) /100WBC PT (9.9-13.0) SEC INR (0.9-1.1) APTT (24.1-38.0) SEC Sodium 138 (135-145) mmol/L Potassium 3.9 (3.3-5.1) mmol/L Chloride 102 (96-108) mmol/L Carbon Dioxide 30 H (22-29) mmol/L Anion Gap 10 L (12-20) BUN 9 (9-16) mg/dL Creatinine 0.79 (0.5-1.4) mg/dL Estim Creat Clear Calc 110.2 Estimated GFR > 60 Random Glucose 100 (60-115) mg/dL Calcium 10.0 (8.4-10.2) mg/dL Total Bilirubin < 0.2 (0.0-1.0) mg/dL Direct Bilirubin < 0.2 (0.0-0.5) mg/dL AST 24 (5-31) U/L ALT 47 H (0-31) U/L Alkaline Phosphatase 101 (39-117) U/L Total Protein 8.1 H (6.5-8.0) g/dL Albumin 4.5 (3.5-5.0) g/dL Beta HCG, Quant 283 mIU/mL Urine Color BROWN Urine Appearance CLOUDY Urine pH 6.0 (5.0-8.0) Ur Specific [place] 1.025 (1.005-1.025) Urine Protein 1+ H (NEG-TRACE) MG/DL Urine Glucose (UA) NEG (NEG) MG/DL Urine Ketones NEG (NEG) MG/DL Urine Blood 3+ H (NEG) Urine Nitrite NEG (NEG) Ur Leukocyte Esterase NEG (NEG) Urine RBC TNTC H (0) /HPF Urine WBC 0-2 (0-4) /HPF Ur Squamous Epith Cells 4+ /LPF Urine Bacteria 1+ /LPF Urine Mucus 4+ /LPF Urine Test POSITIVE H (NEGATIVE) Discharge Plan Discharge Clinical Impression: Incomplete Patient Disposition: Home, Self-Care Instructions: Miscarriage (ED) Additional Instructions: Your ultrasound and blood work indicate miscarriage. Dr. Childers, OBGYN on-call, recommends follow-up at outpatient [facility]. Return to the ED immediately for abdominal pain, worsening vaginal bleeding, weakness, dizziness, chest pain, shortness of breath, or any other concerning symptoms. Referrals: Matt Childers MD [Physician] - 2 days (Complete ) Stand Alone Forms: Work/School Release Interventions: ED Discharge Assessment Last Done: 07/25/21 00:36 Discharge Date/Time: 07/25/21 00:37 Print Language: Mozambican
[2021-07-24 22:03] VITALS: BP 115/79; PULSE 78; RESP 18; O2SAT 95
[2021-07-24] MEDS: 0.9 % Sodium Chloride 1,000 ML 999 ML IV (22:11)
[2021-07-24 22:17] LABS: MANUAL DIFF FLAG NO
[2021-07-24 22:19] LABS: Basophils Percent Auto 0.2 % (0-2); Eosinophils Absolute Auto 0.1 X10*3/uL (0.0-0.4); Eosinophils Percent Auto 1.6 % (0-4); Hematocrit 35.7 % (37.0-47.0); Hematocrit 36.5 % (37.0-47.0); Hemoglobin 11.6 g/dl (12.0-16.0); Hemoglobin 11.7 g/dl (12.0-16.0); Imm Gran Abs Auto 0.01 X10*3/uL (0.00-0.03); Imm Gran Pct Auto 0.2 % (0.0-0.4); Lymphocytes Absolute Auto 2.1 X10*3/uL (1.2-4.9); Lymphocytes Percent Auto 39.8 % (20-40); Mean Corpuscular HGB Conc 32.1 g/dl (31.0-35.0); Mean Corpuscular Hemoglobin 26.5 pg (27.0-33.0); Mean Corpuscular Volume 82.8 fL (80.0-98.0); Mean Platelet Volume 9.6 fL (9.4-12.3); Monocytes Absolute Auto 0.5 X10*3/uL (0.1-1.2); Monocytes Percent Auto 9.3 % (2-11); Neutrophils Absolute Auto 2.5 x10*3/uL (2.0-8.3); Neutrophils Percent Auto 48.9 % (45-73); Platelet Count 270 X10*3/uL (160-400); Red Blood Count 4.41 X10*6/uL (4.20-5.50); Red Cell Distribution Width 12.8 % (11.0-16.0); White Blood Count 5.2 X10*3/uL (4.8-10.8)
[2021-07-24 22:38] LABS: Alanine Aminotransferase 47 U/L (0-31); Albumin Level 4.5 g/dL (3.5-5.0); Alkaline Phosphatase 101 U/L (39-117); Anion Gap 10 (12-20); Aspartate Amino Transferase 24 U/L (5-31); Bilirubin Direct < 0.2 mg/dL (0.0-0.5); Bilirubin Total < 0.2 mg/dL (0.0-1.0); Blood Urea Nitrogen 9 mg/dL (9-16); Carbon Dioxide 30 mmol/L (22-29); Chloride 102 mmol/L (96-108); Creatinine Clr Calc Pharmacy 110.2; Estimated Glomerular Filt Rate > 60; Glucose Random 100 mg/dL (60-115); Potassium 3.9 mmol/L (3.3-5.1); Sodium 138 mmol/L (135-145); Total Protein 8.1 g/dL (6.5-8.0)
[2021-07-24 22:41] LABS: INTERNATIONAL NORM RATIO 1.1 (0.9-1.1); Prothrombin Time 12.7 SEC (9.9-13.0)
[2021-07-24 22:43] LABS: HCG Quantitative 283 mIU/mL
[2021-07-24 22:44] LABS: Partial Thromboplastin Time 37.7 SEC (24.1-38.0)
[2021-07-24 23:11] LABS: UPreg QC Valid YES; Urine Pregnancy POSITIVE (NEGATIVE)
[2021-07-24 23:12] LABS: Appearance Urine CLOUDY; Color Urine BROWN; Glucose Urine UA NEG (NEG); Leukocyte Esterase Urine NEG (NEG); Nitrite Urine NEG (NEG); Specific Gravity - Urine 1.025 (1.005-1.025); UACC Culture Trigger NO; Urine Blood 3+ (NEG); Urine Ketones NEG (NEG); Urine Protein 1+ MG/DL (NEG-TRACE)
[2021-07-24 23:20] LABS: Bacteria Urine 1+ /LPF; Mucus Urine 4+ /LPF; RBC Urine TNTC /HPF (0); Squamous Epithelial Cell Urine 4+ /LPF; WBC Urine 0-2 /HPF (0-4)
--- NOTE | 2021-07-25 00:12 | P.CONOB_ITS ---
EDUCATIONAL INSTITUTION CURATOR - CN: HPI Data of Consult Consult date: 07/25/21 Primary Care Provider: None Physician Consult Narrative Narrative: I was consulted on Kiana Campos who is a 26 year old female presented to the ED with mild vaginal bleeding. Patient is and was seen here 2 days ago for heavy vaginal bleeding clots while and had US which showed gesational sac with yolk sace but no pole. Patient states that she no longer has bleeding clots, her bleeding slowed down and denies any abdominal pain. patient came back to the ED for continuous vaginal bleeding and mild fatigue. The following workup was done in the emergency room. HCG dropped from 2617 down to 263 in 3 days, H&H is 11.7/36.5, Rh positive, ultr asound showed no IUP to 3 days ago with borderline thickened endometrium cc:: CC: CUSTOMER CONSULTANT - Review of Systems Review of Systems ROS Unobtainable: All systems reviewed & are unremarkable except as noted in HPI and below Cardiovascular: Denies Palpatations, Loss of consciousness or Chest pain Respiratory: Denies Cough, Wheezing or Shortness of breath Musculoskeletal: Denies Low back pain Gastrointestinal: Denies Heartburn, Constipation, Diarrhea, Nausea or Vomiting Genitourinary: Denies Pain with urination, Burning with urination or Urinary frequency Neurological: Denies Migranes Psychological: Denies Depression OB PMFSH Past Medical History Medical History No known health problems Social History Social History (Updated 07/22/21 @ 08:16 by Karon Kyle DO) Patient Tobacco Use Status: Never used Tobacco Advance Directives: No Advance Directives Information Provided: No Patient : Yes Meds Allergies Allergy/AdvReac Type Severity Reaction Status Date / Time No Known Allergies Allergy Verified 07/21/21 19:07 EDUCATIONAL INSTITUTION CURATOR Physical Exam Vitals Vital signs: Temp Pulse Resp BP Pulse Ox 97.1 F 78 18 115/79 95 07/24/21 16:00 07/24/21 22:03 07/24/21 22:03 07/24/21 22:03 07/24/21 22:03 BMI result Body Mass Index 27.4 Constitutional General Appearance: Healthy appearing, Well-nourished and Well-developed Psychiatric Mood and Affect: active and alert, normal mood and normal affect Skin Appearance: No rashes and No lesions Lungs Respiratory Effort: No intercostal retractions Auscultation: Clear to auscultation Cardiovascular Auscultation: RRR Abdomen Auscultation/Inspection/Palpation: Normal bowel sounds, Soft, Non-distended and No tenderness Additional Comments: Pelvic exam per MAG James reported, closed cervix, no evidence of blood clots per vagina, no tenderness, no evidence of active bleeding EDUCATIONAL INSTITUTION CURATOR - Results Labs CBC & Chem 7: 07/24/21 22:11 07/24/21 22:11 Labs: Short CBC 07/24/21 07/24/21 Range/Units 22:11 22:11 WBC 5.2 (4.8-10.8) X10*3/uL Hgb 11.6 L 11.7 L (12.0-16.0) g/dl Hct 35.7 L 36.5 L (37.0-47.0) % Plt Count 270 (160-400) X10*3/uL BMP 07/24/21 22:11 Sodium 138 Potassium 3.9 Chloride 102 Carbon Dioxide 30 H BUN 9 Creatinine 0.79 Calcium 10.0 Liver Function 07/24/21 Range/Units 22:11 Total Bilirubin < 0.2 (0.0-1.0) mg/dL Direct Bilirubin < 0.2 (0.0-0.5) mg/dL AST 24 (5-31) U/L ALT 47 H (0-31) U/L Alkaline Phosphatase 101 (39-117) U/L Albumin 4.5 (3.5-5.0) g/dL Urine 07/24/21 07/24/21 Range/Units 23:05 23:05 Urine Color BROWN Urine Appearance CLOUDY Urine pH 6.0 (5.0-8.0) Ur Specific [place] 1.025 (1.005-1.025) Urine Protein 1+ H (NEG-TRACE) MG/DL Urine Glucose (UA) NEG (NEG) MG/DL Urine Test POSITIVE H (NEGATIVE) Imaging US - abdomen: Radiologist's impression: ITS Impressions Pelvic/Transvag US 07/24/21 22:59 IMPRESSION: The previously seen intrauterine gestational sac is no longer identified suggestive of interval miscarriage. Endometrium is borderline thickening measuring 1 cm, for which retained products of conception cannot be excluded. No free fluid or adnexal mass. Assessment and Plan (1) Complete : Status: Acute Discussed with MAG James in the emergency room the following: Clinical scenario suggestive of complete the bleeding has slowed down, no evidence of active bleeding on pelvic exam, cervix is closed, intrauterine is no longer present by ultrasound and hCG dropped from 2617 down to 263. Rh is positive Signs and symptoms of incomplete to be discussed with the patient, Instructions to be given to the patient to follow-up in the office in 48 hours the hCG quantitative and to come back to emergency room in case of or worsening of her vaginal. I was consulted regarding this patient, I did not see her nor examined her.
== END 2021-07-25 00:37 | disposition home or self-care (01) ==
PROVIDERS: Physician Assistant; Emergency Provider Student in an Organized Health Care Education/Training Program
DX: O03.1 Delayed or excessive hemorrhage following incomplete spontaneous abortion (principal)
CPT/HCPCS: 36415; 76801; 76817; 80053; 81001; 81025; 82248; 84702; 85014; 85018; 85025; 85610; 85730; 96360; 99284

== ENCOUNTER 2021-09-08 11:46 | Emergency (ER) | payer OTHER, SELFPAY ==
--- NOTE | ~2021-09-08 | US_ITS ---
EXAMINATION: US OBSTETRICAL ULTRASOUND CLINICAL INFORMATION: Cramping abdominal pain. History of miscarriage in the first week of July with no last menstrual period since then. COMPARISON: 07/24/2021. TECHNIQUE: Ultrasound of the maternal pelvis is performed using transabdominal and transvaginal transducers. Transvaginal imaging is performed due to inadequate visualization transabdominally. M-mode Doppler is also performed. FINDINGS: There is a single intrauterine gestational sac with visible yolk sac, embryo/fetus, and cardiac activity. There is no significant subchorionic hemorrhage or hematoma. CRL (crown rump length): 0.5 cm (6 weeks and 2 days +/- 4 days). APARNA (estimated date of delivery): 05/02/2022 +/- 4 days. heart rate: 128 bpm. MATERNAL ADNEXA: Ovaries are normal in size and morphology with preserved flow at the moment of this examination. The right maternal ovary measures 2.9 x 1.8 x 1.4 cm. The left maternal ovary measures 2.8 x 2.2 x 2.2 cm. There is a 1.4 x 1 x 1.1 cm corpus luteal cyst. There is no significant maternal adnexal mass. No maternal pelvic ascites. US/US OB <= 14 weeks fetus IMPRESSION: 1. Single intrauterine gestation with ultrasound gestational age of 6 weeks and 2 days +/- 4 days. 2. Estimated date of delivery is 05/02/2022 +/- 4 days. 3. No maternal adnexal mass or pelvic ascites.
[2021-09-08 12:18] VITALS: BP 109/77; PULSE 85; RESP 17; TEMP 36.2; O2SAT 100; BMI 26.2
[2021-09-08 13:21] LABS: MANUAL DIFF FLAG NO
[2021-09-08 13:22] LABS: Basophils Percent Auto 0.3 % (0-2); Eosinophils Absolute Auto 0.1 X10*3/uL (0.0-0.4); Hematocrit 37.4 % (37.0-47.0); Hemoglobin 12.1 g/dl (12.0-16.0); Imm Gran Abs Auto 0.02 X10*3/uL (0.00-0.03); Imm Gran Pct Auto 0.3 % (0.0-0.4); Lymphocytes Absolute Auto 1.6 X10*3/uL (1.2-4.9); Lymphocytes Percent Auto 23.4 % (20-40); Mean Corpuscular HGB Conc 32.4 g/dl (31.0-35.0); Mean Corpuscular Hemoglobin 26.4 pg (27.0-33.0); Mean Corpuscular Volume 81.5 fL (80.0-98.0); Monocytes Absolute Auto 0.5 X10*3/uL (0.1-1.2); Monocytes Percent Auto 7.4 % (2-11); Neutrophils Absolute Auto 4.7 x10*3/uL (2.0-8.3); Neutrophils Percent Auto 67.6 % (45-73); Platelet Count 252 X10*3/uL (160-400); Red Blood Count 4.59 X10*6/uL (4.20-5.50); Red Cell Distribution Width 12.5 % (11.0-16.0)
[2021-09-08 13:26] LABS: Appearance Urine CLOUDY; Color Urine YELLOW; Glucose Urine UA NEG (NEG); Leukocyte Esterase Urine 3+ (NEG); Nitrite Urine NEG (NEG); PH 7.5 (5.0-8.0); UACC Culture Trigger YES; Urine Blood NEG (NEG); Urine Ketones NEG (NEG); Urine Protein NEG (NEG-TRACE)
[2021-09-08 13:36] LABS: Bacteria Urine 3+ /LPF; RBC Urine 0 /HPF (0); Squamous Epithelial Cell Urine 4+ /LPF
[2021-09-08 13:39] LABS: Alanine Aminotransferase 13 U/L (0-31); Albumin Level 4.6 g/dL (3.5-5.0); Alkaline Phosphatase 90 U/L (39-117); Anion Gap 10 (12-20); Aspartate Amino Transferase 15 U/L (5-31); Bilirubin Direct 0.2 mg/dL (0.0-0.5); Bilirubin Total 0.7 mg/dL (0.0-1.0); Blood Urea Nitrogen 8 mg/dL (9-16); Calcium 9.7 mg/dL (8.4-10.2); Carbon Dioxide 28 mmol/L (22-29); Chloride 100 mmol/L (96-108); Creatinine Clr Calc Pharmacy 112.3; Estimated Glomerular Filt Rate > 60; Glucose Random 101 mg/dL (60-115); Lipase 13 U/L (8-78); Potassium 4.1 mmol/L (3.3-5.1); Sodium 134 mmol/L (135-145); Total Protein 7.9 g/dL (6.5-8.0)
--- NOTE | 2021-09-08 15:43 | ED_ITS ---
HPI - Nausea/Vomiting/Diarrhea General Chief complaint: Nausea/Vomiting/Diarrhea Stated complaint: 6 to 8 wks vomiting dehydrated Time Seen by Provider: 09/08/21 15:42 Source: patient Mode of arrival: ambulatory Limitations: no limitations History of Present Illness HPI Narrative: 26 y/o female who is currently 6-8 weeks and had miscarriage in July presents to the ER for evaluation of nausea, vomiting and abdominal cramping that started yesterday. She reports her doctor confirmed she was with blood work but no ultrasound. She denies any vaginal bleeding or discharge. She reports abdominal pain and cramping only when she vomits. She vomited 2x yesterday but none today. She feels very dehydrated. She is urinating normally without any pain or blood in her urine. No diarrhea, fever, or chills. MD elicited complaint: nausea, vomiting and abdominal pain Onset (ago): day(s) (1) Description of vomiting: food contents Associated nausea: Yes Associated abdominal pain: Yes Location of pain: suprapubic Pain consistency: intermittent Severity: mild Quality: cramping Exacerbating factors: eating Relieving factors: none Associated symptoms: loss of appetite, malaise and nausea/vomiting Related Data Previous Rx's Medication Instructions Recorded cefpodoxime 200 mg tablet 200 mg PO BID #14 tab 09/08/21 ondansetron 4 mg disintegrating 4 mg PO Q8H PRN #7 tab 09/08/21 tablet Allergies Allergy/AdvReac Type Severity Reaction Status Date / Time No Known Allergies Allergy Verified 07/21/21 19:07 Review of Systems Review of Systems: Constitutional: No Fever, No Chills ENT/Mouth: No sore throat, No Rhinorrhea, No Swallowing Difficulty Cardiovascular: No Chest Pain, No SOB, No Orthopnea, No Edema Respiratory: No Cough, No Sputum Gastrointestinal: + Nausea, + Vomiting, No Diarrhea, + abdominal Pain Genitourinary: No Dysuria, No Urinary Frequency, No Hematuria, No vaginal discharge, No vaginal bleeding Musculoskeletal: No joint pain, No Myalgias Skin: No Skin Lesions, No rash Neuro: No Weakness, No Numbness, No Dizziness, No Headache Psych: + Anxiety/Panic, No Depression Heme/Lymph: No Bruising, No Lymphadenopathy Gastrointestinal: Gastrointestinal: Reports nausea PMFSH Past Medical History Medical History No known health problems Social History Social History (Updated 07/22/21 @ 08:16 by Karon Kyle DO) Patient Tobacco Use Status: Never used Tobacco Advance Directives: No Advance Directives Information Provided: No Patient : Yes Physical Exam Vital Signs: Vital Signs: Last Vital Signs Temp 97.1 F 09/08/21 12:18 Pulse 85 09/08/21 12:18 Resp 17 09/08/21 12:18 BP 109/77 09/08/21 12:18 Pulse Ox 100 09/08/21 12:18 BMI result Body Mass Index 26.2 Appearance: Alert. Oriented X3. No acute distress. Eyes: Pupils equal, round and reactive to light. ENT: Pharynx normal. Neck: Normal inspection. Neck supple. CVS: Normal heart rate and rhythm. Pulses normal. Respiratory: No respiratory distress. Breath sounds normal. Abdomen: Soft and nontender. +BS x4. Pelvic deferred Skin: Skin warm and dry. Normal skin color. Normal skin turgor. No rashes. Extremities: No lower extremity edema. Neuro: Oriented X 3. No motor deficit. No sensory deficit. Course Course Course Narrative: 26 y/o female who is 6-8 weeks based on outpatient blood work who had a recent spontaneous presents to the ER with N/V and intermittent abdominal cramping. She denies any vaginal bleeding or discharge. She only reports cramping pains when she is vomiting, none now. Nontender abd. Will get Pelvic U/S to ensure IUP. Labs reassuring. Added iron panel per her request. IVF and Zofran ordered. Reevaluation(s) Reevaluation #1: She is feeling much better. She is tolerating p.o.. Her labs were unremarkable. UA does show evidence of a urinary tract infection, she has no symptoms at this time however given her positive will empirically treat with cefpodoxime. Pending ultrasound results. Reevaluation #2: Ultrasound showing as single intrauterine estimated delivery date of 05/02/2022. Results discussed with patient. She is stable for discharge home with initiation of Unisom at night to help prevent nausea and vomiting as well as p.r.n. Zofran. She will follow-up with her OBGYN as scheduled. MDM - Nausea/Vomiting/Diarrhea Lab Data Result diagrams: 09/08/21 13:14 09/08/21 13:14 Labs: Lab Results 09/08/21 09/08/21 09/08/21 Range/Units 13:14 13:14 13:14 WBC 7.0 (4.8-10.8) X10*3/uL RBC 4.59 (4.20-5.50) X10*6/uL Hgb 12.1 (12.0-16.0) g/dl Hct 37.4 (37.0-47.0) % MCV 81.5 (80.0-98.0) fL MCH 26.4 L (27.0-33.0) pg MCHC 32.4 (31.0-35.0) g/dl RDW 12.5 (11.0-16.0) % Plt Count 252 (160-400) X10*3/uL MPV 10.0 (9.4-12.3) fL Immature Gran % (Auto) 0.3 (0.0-0.4) % Neut % (Auto) 67.6 (45-73) % Lymph % (Auto) 23.4 (20-40) % [place] % (Auto) 7.4 (2-11) % Eos % (Auto) 1.0 (0-4) % Baso % (Auto) 0.3 (0-2) % Lymph # (Auto) 1.6 (1.2-4.9) X10*3/uL [place] # (Auto) 0.5 (0.1-1.2) X10*3/uL Eos # (Auto) 0.1 (0.0-0.4) X10*3/uL Baso # (Auto) 0.0 (0.0-0.2) X10*3/uL Abs Immat Gran (auto) 0.02 (0.00-0.03) X10*3/uL Absolute Neuts (auto) 4.7 (2.0-8.3) x10*3/uL Absolute Nucleated RBC 0.000 (0.0-0.012) X10*3/uL Nucleated RBC % (auto) 0.0 (0.0-0.2) /100WBC Sodium 134 L (135-145) mmol/L Potassium 4.1 (3.3-5.1) mmol/L Chloride 100 (96-108) mmol/L Carbon Dioxide 28 (22-29) mmol/L Anion Gap 10 L (12-20) BUN 8 L (9-16) mg/dL Creatinine 0.76 (0.5-1.4) mg/dL Estim Creat Clear Calc 112.3 Estimated GFR > 60 Random Glucose 101 (60-115) mg/dL Calcium 9.7 (8.4-10.2) mg/dL Iron 103 (30-160) mcg/dL TIBC 397 (228-428) mcg/dL % Saturation 26 (15-50) % Unsat Iron Binding 294 ug/dL Total Bilirubin 0.7 (0.0-1.0) mg/dL Direct Bilirubin 0.2 (0.0-0.5) mg/dL AST 15 (5-31) U/L ALT 13 (0-31) U/L Alkaline Phosphatase 90 (39-117) U/L Total Protein 7.9 (6.5-8.0) g/dL Albumin 4.6 (3.5-5.0) g/dL Lipase 13 (8-78) U/L Beta HCG, Quant 73907 mIU/mL Urine Color Urine Appearance Urine pH (5.0-8.0) Ur Specific [place] (1.005-1.025) Urine Protein (NEG-TRACE) MG/DL Urine Glucose (UA) (NEG) MG/DL Urine Ketones (NEG) MG/DL Urine Blood (NEG) Urine Nitrite (NEG) Ur Leukocyte Esterase (NEG) Urine RBC (0) /HPF Urine WBC (0-4) /HPF Ur Squamous Epith Cells /LPF Urine Bacteria /LPF 09/08/21 Range/Units 13:14 WBC (4.8-10.8) X10*3/uL RBC (4.20-5.50) X10*6/uL Hgb (12.0-16.0) g/dl Hct (37.0-47.0) % MCV (80.0-98.0) fL MCH (27.0-33.0) pg MCHC (31.0-35.0) g/dl RDW (11.0-16.0) % Plt Count (160-400) X10*3/uL MPV (9.4-12.3) fL Immature Gran % (Auto) (0.0-0.4) % Neut % (Auto) (45-73) % Lymph % (Auto) (20-40) % [place]er % (Auto) (2-11) % Eos % (Auto) (0-4) % Baso % (Auto) (0-2) % Lymph # (Auto) (1.2-4.9) X10*3/uL [place] # (Auto) (0.1-1.2) X10*3/uL Eos # (Auto) (0.0-0.4) X10*3/uL Baso # (Auto) (0.0-0.2) X10*3/uL Abs Immat Gran (auto) (0.00-0.03) X10*3/uL Absolute Neuts (auto) (2.0-8.3) x10*3/uL Absolute Nucleated RBC (0.0-0.012) X10*3/uL Nucleated RBC % (auto) (0.0-0.2) /100WBC Sodium (135-145) mmol/L Potassium (3.3-5.1) mmol/L Chloride (96-108) mmol/L Carbon Dioxide (22-29) mmol/L Anion Gap (12-20) BUN (9-16) mg/dL Creatinine (0.5-1.4) mg/dL Estim Creat Clear Calc Estimated GFR Random Glucose (60-115) mg/dL Calcium (8.4-10.2) mg/dL Iron (30-160) mcg/dL TIBC (228-428) mcg/dL % Saturation (15-50) % Unsat Iron Binding ug/dL Total Bilirubin (0.0-1.0) mg/dL Direct Bilirubin (0.0-0.5) mg/dL AST (5-31) U/L ALT (0-31) U/L Alkaline Phosphatase (39-117) U/L Total Protein (6.5-8.0) g/dL Albumin (3.5-5.0) g/dL Lipase (8-78) U/L Beta HCG, Quant mIU/mL Urine Color YELLOW Urine Appearance CLOUDY Urine pH 7.5 (5.0-8.0) Ur Specific [place] 1.010 (1.005-1.025) Urine Protein NEG (NEG-TRACE) MG/DL Urine Glucose (UA) NEG (NEG) MG/DL Urine Ketones NEG (NEG) MG/DL Urine Blood NEG (NEG) Urine Nitrite NEG (NEG) Ur Leukocyte Esterase 3+ H (NEG) Urine RBC 0 (0) /HPF Urine WBC 15-29 H (0-4) /HPF Ur Squamous Epith Cells 4+ /LPF Urine Bacteria 3+ /LPF Discharge Plan Discharge Clinical Impression: Nausea and vomiting during Patient Disposition: Home, Self-Care Instructions: Nausea and Vomiting in (ED), Urinary Tract Infection in (ED) Additional Instructions: Your urine test showed evidence of a bladder infection. Start taking the prescribed antibiotic as directed, complete the entire course. Drink plenty of water and stay hydrated. Your lab workup today was unremarkable, your iron studies were all normal. Your ultrasound showed a single in the uterus with estimated delivery date of 05/02/22. Recommend starting Unisom every night to help prevent nausea and vomiting - this is over the counter. This is safe for you and baby. Take the prescribed Zofran as needed for persistent vomiting. Follow up with your bss solution architect. If you develop new or worsening symptoms call 911 or come back to the ER for further evaluation. Prescriptions: New cefpodoxime 200 mg tablet 200 mg PO BID Qty: 14 0RF Rx Instructions: must administer with a meal/food ondansetron 4 mg tablet,disintegrating 4 mg PO Q8H PRN (Reason: nausea and vomiting) Qty: 7 0RF
[2021-09-08] MEDS: Ondansetron ODT 4 MG TAB.RAPDIS TRANSLINGU (15:53)
[2021-09-08] MEDS: 0.9 % Sodium Chloride 1,000 ML 999 ML IVCONT (16:00)
[2021-09-08 16:43] LABS: Iron 103 mcg/dL (30-160)
[2021-09-08 16:54] LABS: Percent Iron Saturation 26 % (15-50); Total Iron Binding Capacity 397 mcg/dL (228-428); Unsaturated Iron Binding 294 ug/dL
[2021-09-08 18:30] VITALS: BP 107/70; PULSE 73; RESP 16; O2SAT 100
== END 2021-09-08 18:31 | disposition home or self-care (01) ==
PROVIDERS: Physician Assistant; Emergency Provider Emergency Medicine
DX: O21.9 Vomiting of pregnancy, unspecified (principal); Z3A.01 Less than 8 weeks gestation of pregnancy
CPT/HCPCS: 36415; 76801; 80048; 80076; 81001; 83540; 83690; 84702; 85025; 87086; 96361; 96374; 99284

== ENCOUNTER 2022-09-16 09:20 | Emergency (ER) | payer OTHER, SELFPAY ==
[2022-09-16 09:23] VITALS: BP 136/78; PULSE 90; RESP 20; TEMP 36.2; O2SAT 94; BMI 29.9
[2022-09-16 09:48] LABS: COVID-19 Test Negative (Negative); IDNOW Serial# 16C4AD1C; IDNOW Serial# 6674DD1D; Strep A Nucleic Acid Positive (Negative)
[2022-09-16 09:50] LABS: IDNOW Serial# 9DB6401D; Influenza A Negative (Negative); Influenza B2 Negative (Negative)
--- NOTE | 2022-09-16 09:58 | ED_ITS ---
HPI - URI/Sore Throat General Chief Complaint: Upper Respiratory Symptoms Stated Complaint: sore throat Time Seen by Provider: 09/16/22 09:33 Source: patient Mode of arrival: ambulatory Limitations: no limitations History of Present Illness HPI Narrative: Patient is a 27-year-old female who presents emergency department for evaluation of a sore throat. Onset of symptoms was 2 days ago, has had associated intermi ttent headache, myalgias, chills. Denies known fever, nasal congestion, ear pain, inability to swallow, cough, shortness of breath, chest pain, nausea vomiting, abdominal pain, numbness or tingling in the extremities, weakness. Related Data Previous Rx's Medication Instructions Recorded cefpodoxime 200 mg tablet 200 mg PO BID #14 tabs 09/08/21 ondansetron 4 mg disintegrating 4 mg PO Q8H PRN nausea and 09/08/21 tablet vomiting #7 tabs penicillin V potassium 500 mg 500 mg PO BID 10 days #20 tabs 09/16/22 tablet Allergies Allergy/AdvReac Type Severity Reaction Status Date / Time No Known Allergies Allergy Verified 07/21/21 19:07 Review of Systems Review of Systems: Constitutional: No fever. Positive chills. No weakness. No fatigue. ENT/ Mouth: No Ear Pain, no Nasal Congestion, positive sore throat, No Rhinorrhea, No Swallowing Difficulty Skin: No rash or itching. Cardiovascular: No chest pain. No palpitations. Respiratory: No shortness of breath. No cough. No sputum production. Gastrointestinal: No nausea. No vomiting. No diarrhea. No abdominal pain. Genitourinary: No burning micturition. No urinary frequency. Neurologic: Positive headache. No dizziness. No syncope. No numbness or tingling in the extremities. Musculoskeletal: Positive myalgias. No back pain. No joint pain or stiffness. Yes all other systems are reviewed and are negative [facility] Past Medical History Attestation statement: The following information was validated with the patient. Source: old records reviewed Medical History No known health problems Social History Social History (Updated 07/22/21 @ 08:16 by Kellie Kyle DO) Patient Tobacco Use Status: Never used Tobacco Advance Directives: No Advance Directives Information Provided: No Physical Exam Vital Signs: Vital Signs: Last Vital Signs Temp 97.1 F 09/16/22 09:23 Pulse 90 09/16/22 09:23 Resp 20 09/16/22 09:23 BP 136/78 09/16/22 09:23 Pulse Ox 94 09/16/22 09:23 O2 Del Method 09/16/22 09:23 BMI result Body Mass Index 29.9 Appearance: Alert.?Oriented to person, place and time. No acute distress.?Normal affect. Eyes: Pupils equal, round and reactive to light.? ENT: TM normal bilaterally. Pharynx erythematous with tonsillar hypertrophy 2+ bilaterally, positive exudat. No trismus. No drooling. Uvula midline. Neck: Normal inspection.? Neck supple.??No cervical adenopathy. No nuchal rigidity CVS: Heart sounds normal. Normal heart rate and rhythm.? Pulses normal.?? Respiratory: No respiratory distress.? Lung sounds clear to auscultation bilaterally?? Abdomen: Soft and non-tender. Normoactive bowel sounds. Skin: Skin warm and dry.? Normal skin color.? ? Extremities: No lower extremity edema.? Neuro: Moves all extremities spontaneously. Sensation intact bilaterally. No motor deficits. Ambulates with normal steady gait. Medical Decision Making Medical Decision Making [facility] Narrative: Patient is a 27-year-old female with no reported past medical history presenting to emergency department for evaluation of sore throat and myalgias.. COVID-19 testing negative. Influenza testing negative. Strep a testing positive. At this time history and physical exam not consistent with meningitis, peritonsillar abscess, retropharyngeal abscess, pneumonia. Well-appearing, nontoxic, afebrile, no tachycardia or tachypnea/hypoxia. Speaking clear full sentences, ambulatory with steady gait. Sent prescription for penicillin to pharmacy, received dose of dexamethasone orally while in the emergency department. Discussed conservative treatment including rest, hydration, Tylenol/ibuprofen as needed for fever and body aches, saline nasal spray, hum idifier, [id number] cold medication. Advised to follow-up with primary care provider as needed, discussed reasons to return back to the emergency department. All questions were answered. Patient discharged home in stable condition. Differential Diagnosis Differential Diagnoses: The differential diagnosis associated with the pr esentation includes (As noted above) Lab Data [facility] Lab Attestation statement: I reviewed the patient's lab results. Labs: Lab Results 09/16/22 09/16/22 09/16/22 Range/Units 09:29 09:29 09:29 COVID-19 (ALEXANDER) Negative (Negative) COVID-19 Clin Com See Note Influenza Type A (HARPREET) Negative (Negative) Influenza Type B (HARPREET) Negative (Negative) Influenza A & B Note See Note S. pyogenes GrpA HARPREET Positive A (Negative) Prescription Management I considered prescription management with: Antibiotic Discharge Plan Discharge Clinical Impression: Acute streptococcal pharyngitis Patient Disposition: Home, Self-Care Instructions: Strep Throat (ED) Additional Instructions: Take the entire course of antibiotics as prescribed. You can take ibuprofen 200 mg, 3 tablets (600mg) every 6-8 hours as needed for pain, in addition to Tylenol 500 mg, 2 tablets (1,000mg) every 4-6 hours as needed for pain, but not to exceed 3 doses daily (3,000mg).? You may also use warm salt water gargles, Chloraseptic throat spray, throat lozenges to help with your symptoms. Prescriptions: New penicillin V potassium 500 mg tablet 500 mg PO BID 10 Days Qty: 20 0RF No Action cefpodoxime 200 mg tablet 200 mg PO BID Qty: 14 0RF Rx Instructions: must administer with a meal/food ondansetron 4 mg tablet,disintegrating 4 mg PO Q8H PRN (Reason: nausea and vomiting) Qty: 7 0RF Referrals: Physician,None [Primary Care Provider] -
[2022-09-16] MEDS: dexAMETHasone sod phosphate 4 MG/ML VIAL 8 MG PO (10:07)
== END 2022-09-16 10:13 | disposition home or self-care (01) ==
PROVIDERS: Emergency Provider Emergency Medicine
DX: J02.0 Streptococcal pharyngitis (principal); Z20.822 Contact with and (suspected) exposure to COVID-19
CPT/HCPCS: 36415; 87502; 87635; 87651; 99282; 99283; J1100

== ENCOUNTER 2023-01-20 19:55 | Emergency (ER) | payer OTHER, SELFPAY ==
[2023-01-20 19:57] VITALS: BP 127/74; PULSE 99; RESP 18; TEMP 36.6; O2SAT 100; BMI 24.1
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
--- NOTE | 2023-01-20 22:35 | PC.NURSE ---
pt upon discharge started to vomit and feel dizzy from the nausea. MD made aware of pts condition and meds were prescribed
== END 2023-01-20 22:38 | disposition home or self-care (01) ==
PROVIDERS: Emergency Provider Internal Medicine
DX: S09.90XA Unspecified injury of head, initial encounter (principal); S40.012A Contusion of left shoulder, initial encounter; W50.0XXA Accidental hit or strike by another person, initial encounter; M54.2 Cervicalgia; Y93.44 Activity, trampolining; Y92.9 Unspecified place or not applicable; Y99.9 Unspecified external cause status
CPT/HCPCS: 70450; 72125; 73030; 96372; 99283; 99284

== ENCOUNTER 2023-08-01 17:33 | Emergency (ER) | payer OTHER, SELFPAY ==
--- NOTE | ~2023-08-01 | CT_ITS ---
EXAMINATION: CT HEAD WITHOUT CONTRAST CLINICAL INFORMATION: Migraines for 7 days. COMPARISON: Head CT dated 01/20/2023. TECHNIQUE: Contiguous axial imaging was performed from the skullbase to vertex without intravenous administration of contrast. This CT examination was performed using dose optimization techniques as appropriate, variously including the following: *Automated exposure control *Adjustment of mA and/or kV according to patient size (this includes techniques or standardized protocols for targeted exams where dose is matched to indication/reason for exam; i.e. extremities or head) *Use of iterative reconstruction technique DLP: 646 mGy-cm. FINDINGS: There is no evidence of acute intracranial hemorrhage or territorial infarction. No abnormal mass effect or midline shift is seen. Diallo to white matter differentiation is well preserved. No extra-axial fluid collections are identified. The ventricles are normal in size. There is no abnormal attenuation within the brain parenchyma. The osseous structures and soft tissues are normal. The mastoid air cells and visualized portions of the paranasal sinuses are well aerated. CT/CT head/brain wo IV con IMPRESSION: No acute intracranial pathology.
[2023-08-01 17:48] VITALS: BP 128/60; PULSE 75; RESP 18; TEMP 37.1; O2SAT 98; BMI 26.1
--- NOTE | 2023-08-01 17:49 | ED.HA ---
HPI - Headache General Chief Complaint: Headache Stated Complaint: Migraies x7 days, dizziness Time Seen by Provider: 08/01/23 20:49 History of Present Illness HPI Narrative: Patient is a 28-year-old female presents emergency department for evaluation. She reports that she has been experiencing intermittent migraine headache dominantly right-sided radiating down to the back of her neck and across the right shoulder. Intermittent photophobia associated with this. At time she is experiencing pressure to this side with certain position changes. She states that she is taking Tylenol and ibuprofen at home which does provide her with relief but her headaches who returns a few hours later. Typically at baseline when she experiences her migraine headaches they are relieved with,/ibuprofen in do not reoccur as frequently as this. She states that she was evaluated by her mule operator today, as she was concerned that perhaps her new prescription lenses were the cause for this, she does state that her glasses were aligned, resulting in a more excessive strain on her eyes for her eye doctor. However they still recommended that she come to the emergency department for evaluation. She denies dizziness, vision changes, neck stiffness, numbness or tingling of the extremities. She also reports that she was recently experiencing a substernal chest pain that also started approximately 1 week ago but resolved 2 days ago after she began taking an iron supplementation for her reported anemia. No chest pain at this time. Denies shortness breath or URI symptoms. Related Data Previous Rx's Medication Instructions Recorded cefpodoxime 200 mg tablet 200 mg PO BID #14 tabs 09/08/21 ondansetron 4 mg disintegrating 4 mg PO Q8H PRN nausea and 09/08/21 tablet vomiting #7 tabs penicillin V potassium 500 mg 500 mg PO BID 10 days #20 tabs 09/16/22 tablet ibuprofen 600 mg tablet 600 mg PO Q6H PRN fever or pain 01/20/23 #30 tabs ondansetron 4 mg disintegrating 4 mg PO Q6-8H PRN nausea and 01/20/23 tablet vomiting #7 tabs naproxen 500 mg tablet 500 mg PO BID PRN pain #20 tabs 08/01/23 Allergies Allergy/AdvReac Type Severity Reaction Status Date / Time No Known Allergies Allergy Verified 08/01/23 17:52 Review of Systems Review of Systems: Yes all other systems are reviewed and are negative PMFSH Past Medical History Attestation statement: The following information was validated with the patient. Source: old records reviewed Onset Date is defined in the Problem List Problems that require an onset date and time if occurred within 24 hrs of arrival to the ED Aortic Dissection and Rupture; Neurologic impairment; Cardiopulmonary Arrest; Endotracheal Intubation; Insertion or Replacement of Mechanical Circulatory Assist Device Medical History No known health problems Social History Social History Patient Tobacco Use Status: Never used Tobacco Advance Directives: No Advance Directives Information Provided: No Physical Exam Vital Signs: Vital Signs: Last Vital Signs Temp 98.8 F 08/01/23 17:48 Pulse 71 08/01/23 20:54 Resp 18 08/01/23 17:48 BP 118/74 08/01/23 20:54 Pulse Ox 100 08/01/23 20:54 O2 Del Method Room Air 08/01/23 20:54 BMI result Body Mass Index 26.1 Appearance: Alert.?Oriented to person, place and time. No acute distress.?Normal affect. Eyes: Pupils equal, round and reactive to light.? ENT: Pharynx normal.?? Neck: Normal inspection.? Neck supple.??No midline cervical spine tenderness, step-offs, deformities. Mild tenderness upon palpation of the right paraspinal muscles and across the right trapezius. CVS: Heart sounds normal. Normal heart rate and rhythm.? Pulses normal.?? Respiratory: No respiratory distress.? Lung sounds clear to auscultation bilaterally?? Abdomen: Soft and non-tender. Normoactive bowel sounds. ? Skin: Skin warm and dry.? Normal skin color.? ?? Extremities: No lower extremity edema.? No calf ttp? Neuro: Moves all extremities spontaneously. Sensation intact bilaterally. Negative Kernig sign, negative Brudzinski sign. CN II-XII intact. No focal neuro deficits. Ambulates with normal steady gait. Course Course Course Narrative: RME:?28 yo female here w/ migraine x7 days. pain now shooting down back of neck. admits to intermittent aura and photophobia. endorses head pressure with position changes. taking tylenol and motrin at home with minimal relief. assoc. substernal chest pain x1 week. intermittent. plan for labs, imaging Full HPI, ROS and PE to be performed by the primary ED provider. Medical Decision Making Medical Decision Making [facility] Narrative: Patient is a 28-year-old female who presents emergency department for evaluation of non intractable headaches for the past week and a reported ?fullness? in her head particularly with position changes. Headache has been alleviated by Tylenol and ibuprofen though it does return back. She had a headache today prior to seeing her mule operator who adjusted her prescription lenses she states that without taking ibuprofen or Tylenol her headache has actually improved. She states it is very mild at this time. She has no meningismus or infectious symptoms to suggest meningitis. She does have some mild tenderness upon palpation of the cervical paraspinal muscles I suspect there may be a tension component headaches. She was offered to have IV treatment with migraine cocktail in the emergency department but she states it is tolerable and she would like to go home which I think is reasonable. There was initial mention of chest pain during her triage but she has not experienced for the past 3 days reportedly resolved after taking oral iron supplementation. CBC does reveal a microcytic anemia but does not meet any transfusion criteria. Overall unremarkable BMP. High sensitive troponin is below detectable limits. A CT of the head was obtained prior to my assumption of care which reveals no acute intracranial abnormality. At this time she is stable for discharge home and outpatient follow-up with her primary care provider. Reviewed worrisome signs and symptoms that would warrant re-evaluation emergency department. All questions answered. Differential Diagnosis Differential Diagnoses: The differential diagnosis associated with the presentation includes (See narrative above) Admission/Observation Consideration of admission/observation: Escalation of care including admission/observation considered (See narrative above) Lab Data [facility] Lab Attestation statement: I reviewed the patient's lab results. (See narrative above) 08/01/23 19:26 08/01/23 18:14 Labs: Lab Results 08/01/23 08/01/23 Range/Units 18:14 19:26 WBC 8.6 (4.8-10.8) X10*3/uL RBC 4.46 (4.20-5.50) X10*6/uL Hgb 11.6 L (12.0-16.0) g/dl Hct 35.9 L (37.0-47.0) % MCV 80.5 (80.0-98.0) fL MCH 26.0 L (27.0-33.0) pg MCHC 32.3 (31.0-35.0) g/dl RDW 13.2 (11.0-16.0) % Plt Count 290 (160-400) X10*3/uL MPV 9.8 (9.4-12.3) fL Immature Gran % (Auto) 0.1 (0.0-0.4) % Neut % (Auto) 63.3 (45-73) % Lymph % (Auto) 31.1 (20-40) % Addison % (Auto) 4.3 (2-11) % Eos % (Auto) 0.7 (0-4) % Baso % (Auto) 0.5 (0-2) % Lymph # (Auto) 2.7 (1.2-4.9) X10*3/uL Addison # (Auto) 0.4 (0.1-1.2) X10*3/uL Eos # (Auto) 0.1 (0.0-0.4) X10*3/uL Baso # (Auto) 0.0 (0.0-0.2) X10*3/uL Abs Immat Gran (auto) 0.01 (0.00-0.03) X10*3/uL Absolute Neuts (auto) 5.5 (2.0-8.3) x10*3/uL Absolute Nucleated RBC 0.000 (0.0-0.012) X10*3/uL Nucleated RBC % (auto) 0.0 (0.0-0.2) /100WBC Sodium 135 (135-145) mmol/L Potassium 4.0 (3.3-5.1) mmol/L Chloride 102 (96-108) mmol/L Carbon Dioxide 27 (22-29) mmol/L Anion Gap 10 L (12-20) BUN 15 (9-16) mg/dL Creatinine 0.78 (0.5-1.4) mg/dL Estim Creat Clear Calc 107.2 Estimated GFR > 60 Random Glucose 84 (60-115) mg/dL Calcium 10.4 H D (8.4-10.2) mg/dL Magnesium 2.0 (1.6-2.6) mg/dL Troponin I High Sens < 2.7 (<3.5-17.0) ng/L COVID-19 (ALEXANDER) Negative (Negative) COVID-19 Clin Com See Note Influenza Type A (HARPREET) Negative (Negative) Influenza Type B (HARPREET) Negative (Negative) Influenza A & B Note See Note Independent Interpretation I performed an independent interpretation of an: CT Scan Radiology Impression Discussion of test interpretation with radiology: I have reviewed the radiologist's reading. Radiologist Impression: CT/CT head/brain wo IV con IMPRESSION: No acute intracranial pathology. Independent Historian Clinical information obtained from an independent historian. History obtained from or confirmed by: Spouse External Record Review External record reviewed: Outpatient record Prescription Management I considered prescription management with: Pain Medication (Naproxen) Discharge Plan Discharge Clinical Impression: Headache Patient Disposition: Home, Self-Care Instructions: Acute Headache (ED) Additional Instructions: I sent a prescription for naproxen to your pharmacy, do not take additional [id number] medications including ibuprofen/Motrin/Advil, or Aleve while taking this medication You can take Tylenol 500 mg, 2 tablets (1,000mg) every 4-6 hours as needed for pain, but not to exceed 3 doses daily (3,000mg).? Follow-up with your primary care provider as needed for persistent symptoms. Return back to emergency department any new or worsening symptoms or concerns Prescriptions: New naproxen 500 mg tablet 500 mg PO BID PRN (Reason: pain) Qty: 20 0RF No Action penicillin V potassium 500 mg tablet 500 mg PO BID 10 Days Qty: 20 0RF cefpodoxime 200 mg tablet 200 mg PO BID Qty: 14 0RF Rx Instructions: must administer with a meal/food ondansetron 4 mg tablet,disintegrating 4 mg PO Q8H PRN (Reason: nausea and vomiting) Qty: 7 0RF ibuprofen 600 mg tablet 600 mg PO Q6H PRN (Reason: fever or pain) Qty: 30 0RF ondansetron 4 mg tablet,disintegrating 4 mg PO Q6-8H PRN (Reason: nausea and vomiting) Qty: 7 0RF Referrals: ED Physician,Generic [Emergency Provider] -
--- NOTE | 2023-08-01 17:53 | ECG_ITS ---
Test Reason : HEADACHE Blood Pressure : / mmHG Vent. Rate : 064 BPM Atrial Rate : 064 BPM P-R Int : 204 ms QRS Dur : 070 ms QT Int : 374 ms P-R-T Axes : 065 052 062 degrees QTc Int : 385 ms Normal sinus rhythm with sinus arrhythmia Possible Left atrial enlargement Borderline ECG No significant changes when compared with the previous EKG of 15 may 2019 Referred By: Saima Edward Electronically Signed By:LALITA GALVEZ
[2023-08-01 18:35] LABS: Anion Gap 10 (12-20); Blood Urea Nitrogen 15 mg/dL (9-16); Calcium 10.4 mg/dL (8.4-10.2); Carbon Dioxide 27 mmol/L (22-29); Chloride 102 mmol/L (96-108); Creatinine Clr Calc Pharmacy 107.2; Estimated Glomerular Filt Rate > 60; Glucose Random 84 mg/dL (60-115); Sodium 135 mmol/L (135-145)
[2023-08-01 18:37] LABS: COVID-19 Test Negative (Negative); IDNOW Serial# 16C4AD1C; IDNOW Serial# 55D5AD1C; Influenza A Negative (Negative); Influenza B2 Negative (Negative)
[2023-08-01 18:45] LABS: Troponin-I High Sensitivity < 2.7 ng/L (<3.5-17.0)
[2023-08-01 19:31] LABS: Basophils Percent Auto 0.5 % (0-2); Eosinophils Absolute Auto 0.1 X10*3/uL (0.0-0.4); Eosinophils Percent Auto 0.7 % (0-4); Hematocrit 35.9 % (37.0-47.0); Hemoglobin 11.6 g/dl (12.0-16.0); Imm Gran Abs Auto 0.01 X10*3/uL (0.00-0.03); Imm Gran Pct Auto 0.1 % (0.0-0.4); Lymphocytes Absolute Auto 2.7 X10*3/uL (1.2-4.9); Lymphocytes Percent Auto 31.1 % (20-40); Mean Corpuscular HGB Conc 32.3 g/dl (31.0-35.0); Mean Corpuscular Volume 80.5 fL (80.0-98.0); Mean Platelet Volume 9.8 fL (9.4-12.3); Monocytes Absolute Auto 0.4 X10*3/uL (0.1-1.2); Monocytes Percent Auto 4.3 % (2-11); Neutrophils Absolute Auto 5.5 x10*3/uL (2.0-8.3); Neutrophils Percent Auto 63.3 % (45-73); Platelet Count 290 X10*3/uL (160-400); Red Blood Count 4.46 X10*6/uL (4.20-5.50); Red Cell Distribution Width 13.2 % (11.0-16.0); White Blood Count 8.6 X10*3/uL (4.8-10.8)
[2023-08-01 19:36] LABS: MANUAL DIFF FLAG NO
[2023-08-01 20:54] VITALS: BP 118/74; PULSE 71; O2SAT 100
[2023-08-01 21:24] LABS: HCG Quantitative < 2 mIU/mL
== END 2023-08-01 21:44 | disposition home or self-care (01) ==
PROVIDERS: Nurse Practitioner Family; Physician Assistant Medical; Emergency Provider Internal Medicine
DX: R51.9 Headache, unspecified (principal); Z11.52 Encounter for screening for COVID-19
CPT/HCPCS: 70450; 80048; 83735; 84484; 84702; 85025; 87502; 87635; 93005; 99283; 99284

== ENCOUNTER → 2023-08-01 17:53 | Outpatient (BNV) | payer OTHER, SELFPAY | PROVIDERS: Emergency Provider Internal Medicine; Visit Provider Internal Medicine | DX: R51.9 Headache, unspecified (principal) | CPT/HCPCS: 93010 ==

== ENCOUNTER 2023-11-27 06:28 | Emergency (ER) | payer OTHER, SELFPAY ==
[2023-11-27 06:33] VITALS: BP 120/74; PULSE 114; O2SAT 96
[2023-11-27 06:43] VITALS: BP 120/87; PULSE 97; RESP 18; TEMP 36.6; O2SAT 98; BMI 27.5
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
[2023-11-27] MEDS: Diphth,Pertus(ACell),Tet Adult 0.5 ML SYRINGE IM (07:39)
[2023-11-27] MEDS: Acetaminophen 325 MG TABLET 975 MG PO (07:39)
[2023-11-27] MEDS: Ibuprofen 600 MG TABLET PO (07:39)
[2023-11-27 07:50] VITALS: BP 101/74; PULSE 82; RESP 16; TEMP 36.6; O2SAT 100
== END 2023-11-27 07:56 | disposition home or self-care (01) ==
PROVIDERS: Emergency Provider Emergency Medicine
DX: S01.01XA Laceration without foreign body of scalp, initial encounter (principal); Y04.2XXA Assault by strike against or bumped into by another person, initial encounter; Y93.9 Activity, unspecified; Y92.9 Unspecified place or not applicable; Y99.9 Unspecified external cause status; Z63.0 Problems in relationship with spouse or partner
CPT/HCPCS: 12002; 90471; 90715; 99284

== ENCOUNTER 2024-04-09 09:08 | Emergency (ER) | payer OTHER, SELFPAY ==
[2024-04-09 09:23] VITALS: BP 126/84; PULSE 87; RESP 17; TEMP 36.6; O2SAT 98; BMI 28.0
--- NOTE | 2024-04-09 12:53 | ED.GENADULT ---
HPI - General Adult General Chief complaint: General Medical Stated complaint: sinus infection Time Seen by Provider: 04/09/24 12:56 Source: patient, RN notes reviewed and old records reviewed Mode of arrival: ambulatory History of Present Illness ED Provider: Nicolle Pruett PA-C [facility] narrative: 28-year-old female with no significant past medical history presenting to ED complaining of sinus congestion/pressure x1 week, now with left-sided ear pain radiating to face. Also reports chronic dental pain, currently being treated for right molar issue. Denies fever, chills, drainage from ear, hearing loss, sore throat, cough, travel, sick contacts Related Data Previous Rx's ?Medication ?Instructions ?Recorded cefpodoxime 200 mg tablet 200 mg PO BID #14 tabs 09/08/21 ondansetron 4 mg disintegrating 4 mg PO Q8H PRN nausea and 09/08/21 tablet vomiting #7 tabs penicillin V potassium 500 mg 500 mg PO BID 10 days #20 tabs 09/16/22 tablet ibuprofen 600 mg tablet 600 mg PO Q6H PRN fever or pain 01/20/23 #30 tabs ondansetron 4 mg disintegrating 4 mg PO Q6-8H PRN nausea and 01/20/23 tablet vomiting #7 tabs naproxen 500 mg tablet 500 mg PO BID PRN pain #20 tabs 08/01/23 amoxicillin 875 mg tablet 875 mg PO BID 7 days #14 tabs 04/09/24 Allergies Allergy/AdvReac Type Severity Reaction Status Date / Time No Known Allergies Allergy Verified 04/09/24 09:24 Review of Systems Review of Systems: Yes all other systems are reviewed and are negative Constitutional: Constitutional: Reports as per [facility] Past Medical History Attestation statement: The following information was validated with the patient. Source: old records reviewed Medical History No known health problems Social History Social History Patient Tobacco Use Status: Never used Tobacco Advance Directives: No Advance Directives Information Provided: No Do you have a plan to hurt others: No Plan Physical Exam ED Vital Signs: Vital Signs - 24 hr 04/09/24 09:23 04/09/24 12:54 04/09/24 13:19 Temperature 98 F 98 F 98 F Pulse Rate 87 80 Respiratory Rate 17 18 18 Blood Pressure 126/84 124/87 124/87 Pulse Oximetry 98 98 98 Oxygen Delivery Method Room Air Room Air Room Air BMI result Body Mass Index 28.0 Const General: cooperative, healthy appearing and no acute distress Orientation/consciousness: patient oriented x3 Limitations: no limitations HENMT Other: +cracked R lower molar. No surrounding erythema/swelling, no fluctuance/induration or tenderness Head: Yes normal to inspection and Yes atraumatic Ears: hearing grossly normal bilaterally, external ears normal, TM's normal bilaterally and mastoids normal General nose exam: Normal external nose present Face and sinus: Yes normal facial exam and Yes sinus tenderness (+ frontal and maxillary sinus tenderness) Mouth: Normal oral and palatal mucosa present Teeth and gingiva: poor dentition and other Throat: Yes posterior oropharynx normal, Yes uvula midline, No peritonsillar mass, No uvula laterally displaced and No uvular edema Eyes General: appearance normal, both eyes and all related structures EOM: EOMs intact bilaterally Neck Neck: Yes normal visual inspection and Yes no meningeal signs Resp Effort & Inspection: normal respiratory effort and no respiratory distress Auscultation: clear to auscultation bilaterally Cardio Rate: regular rate Heart sounds: S1 normal heart sound present and S2 normal heart sound present Skin Rashes: no rashes Wounds: no wounds Neuro General: patient oriented x3, tone normal and no meningeal signs Cranial nerves: Yes CN's II-XII intact bilaterally Gait exam (Neuro): Normal gait present Extrem General: Yes normal to inspection Course Course Course Narrative: Viral studies negative Medical Decision Making Medical Decision Making [facility] Narrative: 28-year-old female with no significant past medical history presenting to ED complaining of sinus congestion/pressure x1 week, now with left-sided ear pain radiating to face. On exam vital signs stable, NAD, nontoxic appearing, TMs WNL, mastoids WNL, poor dentition appreciated without abscess or cellulitis. + sinus tenderness consistent with sinusitis. No evidence of [employer]/retropharyngeal abscess. Plan: Viral testing, p.o. antibiotics, PCP follow-up, dentistry follow-up Please refer to course for remaining clinical decision making, interpretation of labs/imaging results, and discussions with consultants and/or family members. Results discussed with patient including worrisome signs and symptoms and strict return precautions, and when to return to the emergency department. They verbalized understanding and feel safe for discharge at this time. Differential Diagnosis Differential Diagnoses: The differential diagnosis associated with the presentation includes As above Lab Data MDM Lab Attestation statement: I reviewed the patient's lab results. Labs: Lab Results 04/09/24 Range/Units 12:54 Influenza Type A (PCR) NEGATIVE (Negative) Influenza Type B (PCR) NEGATIVE (Negative) RSV RNA Qual (PCR) NEGATIVE (Negative) SARS-CoV-2 RNA (RT-PCR) NEGATIVE (Negative) External Record Review External record reviewed: Inpatient record, Office record, Outpatient record, Prior outpatient labs, Prior outpatient radiology, Primary care record and Outside ED record Tests considered The following testing was considered but not selected: As above Prescription Management I considered prescription management with: Pain Medication and Antibiotic Discharge Plan Discharge Clinical Impression: Sinusitis Patient Disposition: Home, Self-Care Instructions: Sinusitis (ED) Additional Instructions: We tested you for COVID, flu, RSV, the results are currently pending you will be contacted with positive results only You have a sinus infection, amoxicillin as an antibiotic please take as prescribed Take Tylenol/ Motrin as needed Follow-up with her doctor If symptoms persist or worsen return to the ED Prescriptions: New amoxicillin 875 mg tablet 875 mg PO BID 7 Days Qty: 14 0RF No Action penicillin V potassium 500 mg tablet 500 mg PO BID 10 Days Qty: 20 0RF cefpodoxime 200 mg tablet 200 mg PO BID Qty: 14 0RF Rx Instructions: must administer with a meal/food ondansetron 4 mg tablet,disintegrating 4 mg PO Q8H PRN (Reason: nausea and vomiting) Qty: 7 0RF ibuprofen 600 mg tablet 600 mg PO Q6H PRN (Reason: fever or pain) Qty: 30 0RF ondansetron 4 mg tablet,disintegrating 4 mg PO Q6-8H PRN (Reason: nausea and vomiting) Qty: 7 0RF naproxen 500 mg tablet 500 mg PO BID PRN (Reason: pain) Qty: 20 0RF Referrals: Physician,None [Primary Care Provider] - Interventions: ED Discharge Assessment Last Done: 04/09/24 13:19 Discharge Date/Time: 04/09/24 13:19 Print Language: Sudanese
[2024-04-09 12:54] VITALS: BP 124/87; RESP 18; TEMP 36.6; O2SAT 98
[2024-04-09 13:19] VITALS: BP 124/87; PULSE 80; RESP 18; TEMP 36.6; O2SAT 98
[2024-04-09 13:45] LABS: Influenza A PCR NEGATIVE (Negative); Influenza B PCR NEGATIVE (Negative); Resp Syncy Virus RNA Qual PCR NEGATIVE (Negative); SARS COV2 PCR INHOUSE NEGATIVE (Negative)
== END 2024-04-09 13:19 | disposition home or self-care (01) ==
PROVIDERS: Physician Assistant; Emergency Provider Student in an Organized Health Care Education/Training Program
DX: J32.8 Other chronic sinusitis (principal); Z03.818 Encounter for observation for suspected exposure to other biological agents ruled out
CPT/HCPCS: 0241U; 99282; 99283

== ENCOUNTER 2024-12-19 09:37 | Emergency (ER) | payer OTHER, SELFPAY ==
--- NOTE | ~2024-12-19 | US_ITS ---
EXAMINATION: US ABDOMEN LIMITED CLINICAL INFORMATION: Epigastric pain, right upper quadrant pain. COMPARISON: None available. TECHNIQUE: Real-time imaging of the right upper quadrant abdominal viscera. FINDINGS: The visualized portions of the liver appear homogeneous. There is no intra-or extrahepatic biliary ductal dilation. The extrahepatic bile duct was 3 mm diameter. There is no gallbladder wall thickening or cholelithiasis. There was no abnormal free fluid. US/US abdomen limited IMPRESSION: Unremarkable gallbladder ultrasound. Electronically signed by: Bernardo Moon MD 12/19/2024 01:12 PM EDT
--- NOTE | ~2024-12-19 | US_ITS ---
EXAMINATION: US FIRST TRIMESTER OB HISTORY: abdominal cramping and . TECHNIQUE: Endovaginal scanning was performed. FINDINGS: There is a single, live intrauterine . AUA = 11 weeks 0 days APARNA(AUA) = 07/10/2025 LMP = 09/29/2024 GA(LMP) = 11 weeks 4 days APARNA(LMP) = 07/06/2025 CRL = 4.00cm FHR = 181bpm Right ovary: The right ovary measures 1.7 x 2.3 x 1.3 cm and is unremarkable. Left ovary: The left ovary is not visualized. Cul-de-sac: No free fluid US/US OB <= 14 weeks fetus IMPRESSION: Single, live intrauterine of estimated gestational age 11 weeks, 0 days. Electronically signed by: Nader Rushing MD 12/19/2024 01:12 PM EDT
[2024-12-19 09:40] VITALS: BP 109/75; PULSE 85; RESP 18; TEMP 36.1; O2SAT 96; BMI 33.4
[2024-12-19 10:08] VITALS: BP 106/70; PULSE 85; RESP 16; TEMP 36.1; O2SAT 97
[2024-12-19 10:10] LABS: MANUAL DIFF FLAG NO
[2024-12-19 10:12] LABS: Basophils Percent Auto 0.4 % (0-2); Eosinophils Absolute Auto 0.1 X10*3/uL (0.0-0.4); Eosinophils Percent Auto 0.9 % (0-4); Hematocrit 34.5 % (37.0-47.0); Hemoglobin 11.9 g/dl (12.0-16.0); Imm Gran Abs Auto 0.01 X10*3/uL (0.00-0.03); Imm Gran Pct Auto 0.1 % (0.0-0.4); Lymphocytes Absolute Auto 2.1 X10*3/uL (1.2-4.9); Lymphocytes Percent Auto 24.9 % (20-40); Mean Corpuscular HGB Conc 34.5 g/dl (31.0-35.0); Mean Corpuscular Hemoglobin 27.4 pg (27.0-33.0); Mean Corpuscular Volume 79.3 fL (80.0-98.0); Mean Platelet Volume 9.5 fL (9.4-12.3); Monocytes Absolute Auto 0.5 X10*3/uL (0.1-1.2); Monocytes Percent Auto 5.5 % (2-11); Neutrophils Absolute Auto 5.6 x10*3/uL (2.0-8.3); Neutrophils Percent Auto 68.2 % (45-73); Platelet Count 264 X10*3/uL (160-400); Red Blood Count 4.35 X10*6/uL (4.20-5.50); Red Cell Distribution Width 12.5 % (11.0-16.0); White Blood Count 8.2 X10*3/uL (4.8-10.8)
--- NOTE | 2024-12-19 10:15 | ED.GENADULT ---
HPI - General Adult General Chief complaint: Nausea/Vomiting/Diarrhea Stated complaint: 11 Wks Preg Vomiting Time Seen by Provider: 12/19/24 10:01 History of Present Illness ED Provider: Bryan Castaneda HPI narrative: 29-year-old female A0 who has a little weeks presents to the ED 2 weeks or vomiting, acid burning sensation and inability to keep food down. Patient states her primary care provider gave her Zofran and vitamin b6 for symptoms. Patient states she she states Zofran but stopped taking vitamin B6. Patient denies any vaginal bleeding. Patient states upper abdomen acid burning sensation and some mild abdominal cramping. Patient denies any recent trauma to the abdomen. Patient denies any fever chills or flank pain. Patient denies any genitourinary symptoms. Related Data Previous Rx's ?Medication ?Instructions ?Recorded cefpodoxime 200 mg tablet 200 mg PO BID #14 tabs 09/08/21 ondansetron 4 mg disintegrating 4 mg PO Q8H PRN nausea and 09/08/21 tablet vomiting #7 tabs penicillin V potassium 500 mg 500 mg PO BID 10 days #20 tabs 09/16/22 tablet ibuprofen 600 mg tablet 600 mg PO Q6H PRN fever or pain 01/20/23 #30 tabs ondansetron 4 mg disintegrating 4 mg PO Q6-8H PRN nausea and 01/20/23 tablet vomiting #7 tabs naproxen 500 mg tablet 500 mg PO BID PRN pain #20 tabs 08/01/23 amoxicillin 875 mg tablet 875 mg PO BID 7 days #14 tabs 04/09/24 Allergies Allergy/AdvReac Type Severity Reaction Status Date / Time No Known Allergies Allergy Verified 12/19/24 13:29 Review of Systems Review of Systems: nausea, vomitting, acid burning, acid burning sensaton Yes all other systems are reviewed and are negative PMFSH Past Medical History Medical History No known health problems Social History Social History (System 12/19/24 @ 13:29 by Eneida Grover) Patient Tobacco Use Status: Never used Tobacco Physical Exam ED Vital Signs: Vital Signs - 24 hr 12/19/24 09:40 12/19/24 10:08 Temperature 97.0 F 97.0 F Pulse Rate 85 85 Respiratory Rate 18 16 Blood Pressure 109/75 106/70 Pulse Oximetry 96 97 Oxygen Delivery Method Room Air Room Air BMI result Body Mass Index 33.4 Const General: cooperative, healthy appearing, comfortable, no acute distress, well developed, alert, awake and Physically active Orientation/consciousness: patient oriented x3 [facility] Head: Yes normal to inspection, Yes No palpable skull fracture present, Yes normocephalic and Yes atraumatic Eyes General: appearance normal, both eyes and all related structures Neck Neck: Yes normal visual inspection, Yes full ROM, Yes no lymphadenopathy, Yes no meningeal signs, Yes trachea midline, Yes supple, No anterior neck swelling and No tender Chest Chest palpation & inspection: normal inspection of the chest and normal palpation of entire chest wall Resp Effort & Inspection: normal respiratory effort and able to speak in complete sentences Auscultation: clear to auscultation bilaterally Cardio Jugular venous distension: no JVD Heart sounds: S1 normal heart sound present and S2 normal heart sound present GI Inspection: Yes normal to inspection Palpation (GI): Soft to palpation, not firm, Tenderness to palpation present (GI) in the epigastrum, no guarding and not rigid General: Yes no CVA tenderness Back/Spine/Pelvis Back: no CVA tenderness and No back tenderness Skin General skin exam: no rashes or lesions noted, elasticity normal and turgor normal Neuro General: patient oriented x3, gait normal, tone normal, moves all extremities, Normal light touch and pain sensation, no meningeal signs, no focal motor deficits, CN's II-XI intact bilaterally and normal sensation to monofilament Extrem General: Yes normal to inspection, Yes full ROM and Yes capillary refill normal Psych Appearance: grossly normal, well kempt and not disheveled Medications Administered Discontinued Medications Generic Name Dose Route Start Last Admin Trade Name Freq PRN Reason Stop Dose Admin Famotidine 20 mg 12/19/24 10:14 12/19/24 10:25 Famotidine/Pf 20 Mg/2 Ml Vial IVPUSH 12/19/24 10:15 20 mg ONCE ONE Administration Lactated Ringer's 500 mls @ 999 mls/hr 12/19/24 10:13 12/19/24 12:22 Lr IV 12/19/24 10:43 Infused .Q31M STA Infusion Lactated Ringer's 1,000 mls @ 999 mls/hr 12/19/24 10:14 12/19/24 12:23 Lr IV 12/19/24 11:14 Infused .Q1H1M STA Infusion Ondansetron HCl 4 mg 12/19/24 10:14 12/19/24 10:24 Ondansetron Hcl 4 Mg/2 Ml Vial IVPUSH 12/19/24 10:15 4 mg ONCE ONE Administration Medical Decision Making Medical Decision Making [facility] Narrative: 29-year-old female 11 weeks G5 before presents to ED for nausea vomiting inability to keep food down acid burning sensation and mild abdominal cramping without any vaginal bleeding. Patient denies any trauma. Lactated Ringer's, Zofran Pepcid ordered. 2:46pm: Ultrasound negative for gallstones or cholecystitis. ultrasound shows IUP with heart rate of 188. Patient passed p.o. challenge. Patient is educated on continue taking vitamin B6 and Zofran prescribed by her OBGYN. Patient explained worrisome signs and informed to return to the ED immediately. Not suspecting cholecystitis, pancreatitis, dehydration, ectopic , appendicitis, or any other life-threatening etiology. Patient given copy of labs and imaging for follow up with OBGYN and medical PRovider. [facility]. Differential Diagnosis Differential Diagnoses: The differential diagnosis associated with the presentation includes (GERD, hyperemesis, threatened ) Admission/Observation Consideration of admission/observation: Escalation of care including admission/observation considered Lab Data [facility] Lab Attestation statement: I reviewed the patient's lab results. 12/19/24 10:06 12/19/24 10:06 Labs: Lab Results 12/19/24 12/19/24 Range/Units 10:06 12:24 WBC 8.2 (4.8-10.8) X10*3/uL RBC 4.35 (4.20-5.50) X10*6/uL Hgb 11.9 L (12.0-16.0) g/dl Hct 34.5 L (37.0-47.0) % MCV 79.3 L (80.0-98.0) fL MCH 27.4 (27.0-33.0) pg MCHC 34.5 (31.0-35.0) g/dl RDW 12.5 (11.0-16.0) % Plt Count 264 (160-400) X10*3/uL MPV 9.5 (9.4-12.3) fL Immature Gran % (Auto) 0.1 (0.0-0.4) % Neut % (Auto) 68.2 (45-73) % Lymph % (Auto) 24.9 (20-40) % [place] % (Auto) 5.5 (2-11) % Eos % (Auto) 0.9 (0-4) % Baso % (Auto) 0.4 (0-2) % Lymph # (Auto) 2.1 (1.2-4.9) X10*3/uL [place] # (Auto) 0.5 (0.1-1.2) X10*3/uL Eos # (Auto) 0.1 (0.0-0.4) X10*3/uL Baso # (Auto) 0.0 (0.0-0.2) X10*3/uL Abs Immat Gran (auto) 0.01 (0.00-0.03) X10*3/uL Absolute Neuts (auto) 5.6 (2.0-8.3) x10*3/uL Absolute Nucleated RBC 0.000 (0.0-0.012) X10*3/uL Nucleated RBC % (auto) 0.0 (0.0-0.2) /100WBC Sodium 137 (135-145) mmol/L Potassium 3.6 (3.3-5.1) mmol/L Chloride 104 (96-108) mmol/L Carbon Dioxide 25 (22-29) mmol/L Anion Gap 12 (12-20) BUN 7 L (9-16) mg/dL Creatinine 0.64 (0.5-1.4) mg/dL Estim Creat Clear Calc 145.9 Estimated GFR > 60 Random Glucose 99 (60-115) mg/dL Calcium 9.9 (8.4-10.2) mg/dL Magnesium 2.0 (1.6-2.6) mg/dL Total Bilirubin 0.4 (0.0-1.0) mg/dL Direct Bilirubin 0.2 (0.0-0.5) mg/dL AST 27 (5-31) U/L ALT 58 H (0-31) U/L Alkaline Phosphatase 108 (39-117) U/L Total Protein 8.0 (6.5-8.0) g/dL Albumin 4.5 (3.5-5.0) g/dL Lipase 12 (8-78) U/L Beta HCG, Quant 36959 mIU/mL Urine Color Yellow Urine Appearance Clear Urine pH 8.0 (5.0-9.0) Ur Specific [place] 1.010 (1.005-1.025) Urine Protein Negative (Neg-Trace) mg/dL Urine Glucose (UA) Negative (Negative) mg/dL Urine Ketones Negative (Negative) mg/dL Urine Blood Negative (Negative) Urine Nitrite Negative (Negative) Ur Leukocyte Esterase Small (1+) H (Negative) Urine RBC 0-2 (0-2) /HPF Urine WBC 0-5 (0-5) /HPF Ur Squamous Epith Cells 3-5 (0-2) /HPF Urine Bacteria None Seen (None Seen) Hyaline Casts 0-2 (0-2) /LPF Urine Test POSITIVE H (NEGATIVE) Independent Interpretation I performed an independent interpretation of an: Ultrasound Radiology Impression Discussion of test interpretation with radiology: I have reviewed the radiologist's reading. Independent Historian Clinical information obtained from an independent historian. History obtained from or confirmed by: Other (Patient) Prescription Management I considered prescription management with: Other (Zofran) Discharge Plan Discharge Clinical Impression: Hyperemesis gravidarum, Abdominal pain in Patient Disposition: Home, Self-Care Instructions: Hyperemesis Gravidarum (ED), Abdominal Pain in (ED) Additional Instructions: Recommend follow-up with your OBGYN provider. Return to the ED immediately for any abdominal pain, nausea, vomiting, flank pain, fever, chills, back pain, vaginal bleeding, vaginal discharge, or any other concerning symptoms. Continue taking Zofran and vitamin B6 you were prescribed by your OBGYN provider. Prescriptions: No Action penicillin V potassium 500 mg tablet 500 mg PO BID 10 Days Qty: 20 0RF cefpodoxime 200 mg tablet 200 mg PO BID Qty: 14 0RF Rx Instructions: must administer with a meal/food ondansetron 4 mg tablet,disintegrating 4 mg PO Q8H PRN (Reason: nausea and vomiting) Qty: 7 0RF ibuprofen 600 mg tablet 600 mg PO Q6H PRN (Reason: fever or pain) Qty: 30 0RF ondansetron 4 mg tablet,disintegrating 4 mg PO Q6-8H PRN (Reason: nausea and vomiting) Qty: 7 0RF naproxen 500 mg tablet 500 mg PO BID PRN (Reason: pain) Qty: 20 0RF amoxicillin 875 mg tablet 875 mg PO BID 7 Days Qty: 14 0RF Stand Alone Forms: Work/School Release Interventions: ED Discharge Assessment Last Done: 12/19/24 15:07 Discharge Date/Time: 12/19/24 15:08 Print Language: Vietnamese
[2024-12-19] MEDS: Lactated Ringers 1,000 ML 999 ML IV (10:17)
[2024-12-19] MEDS: ondansetron HCL 4 MG/2 ML VIAL IVPUSH (10:24)
[2024-12-19] MEDS: Famotidine/PF 20 MG/2 ML VIAL IVPUSH (10:25)
[2024-12-19 10:32] LABS: Alanine Aminotransferase 58 U/L (0-31); Albumin Level 4.5 g/dL (3.5-5.0); Alkaline Phosphatase 108 U/L (39-117); Anion Gap 12 (12-20); Aspartate Amino Transferase 27 U/L (5-31); Bilirubin Direct 0.2 mg/dL (0.0-0.5); Bilirubin Total 0.4 mg/dL (0.0-1.0); Blood Urea Nitrogen 7 mg/dL (9-16); Calcium 9.9 mg/dL (8.4-10.2); Carbon Dioxide 25 mmol/L (22-29); Chloride 104 mmol/L (96-108); Creatinine Clr Calc Pharmacy 145.9; Estimated Glomerular Filt Rate > 60; Glucose Random 99 mg/dL (60-115); Lipase 12 U/L (8-78); Potassium 3.6 mmol/L (3.3-5.1); Sodium 137 mmol/L (135-145)
[2024-12-19] MEDS: Lactated Ringers 500 ML 999 ML IV (10:34)
[2024-12-19 10:58] LABS: HCG Quantitative 51760 mIU/mL
[2024-12-19 12:36] LABS: UPreg QC Valid YES; Urine Pregnancy POSITIVE (NEGATIVE)
[2024-12-19 12:39] LABS: Appearance Urine Clear; Color Urine Yellow; Glucose Urine UA Negative (Negative); Leukocyte Esterase Urine Small (1+) (Negative); Nitrite Urine Negative (Negative); UMIC TRIGGER UACC YES; Urine Blood Negative (Negative); Urine Ketones Negative (Negative); Urine Protein Negative (Neg-Trace)
[2024-12-19 13:01] LABS: Bacteria Urine None Seen (None Seen); Hyaline Casts Urine 0-2 /LPF (0-2); RBC Urine 0-2 /HPF (0-2); UACC Culture Trigger YES; WBC Urine 0-5 /HPF (0-5)
[2024-12-19 15:07] VITALS: BP 106/70; PULSE 85; RESP 16; TEMP 36.1; O2SAT 97
== END 2024-12-19 15:08 | disposition home or self-care (01) ==
PROVIDERS: Physician Assistant; Emergency Provider Emergency Medicine; PCP Internal Medicine
DX: O21.0 Mild hyperemesis gravidarum (principal); R10.2 Pelvic and perineal pain; Z3A.11 11 weeks gestation of pregnancy; Z79.899 Other long term (current) drug therapy
CPT/HCPCS: 36415; 76705; 76801; 80053; 81001; 81025; 82248; 83690; 83735; 84702; 85025; 87086; 96361; 96374; 96375; 99284; J1308; J2405; J7120

== ENCOUNTER → 2024-12-19 11:08 | Outpatient (BNV) | payer OTHER, SELFPAY | PROVIDERS: Emergency Provider Emergency Medicine; PCP Internal Medicine; Visit Provider Radiology Diagnostic Radiology | DX: O26.891 Other specified pregnancy related conditions, first trimester (principal); R10.11 Right upper quadrant pain; R10.13 Epigastric pain; Z3A.11 11 weeks gestation of pregnancy | CPT/HCPCS: 76705 ==